=== PATIENT | female | born 1930 | race Caucasian/White ===

== ENCOUNTER 2017-02-08 02:15 | Inpatient (IN) ==
[2017-02-08] MEDS ORDERED: DILAUDID IV ONE (02:34)
[2017-02-08] MEDS ORDERED: ZOFRAN IV ONE (02:36)
--- NOTE | 2017-02-08 03:29 | PROVIDER DOCUMENTATION ---
This chart was entered by Lucero Tanner Scribe, acting as scribe for Abhay Carpio MD. HPI-Musculoskeletal Pain/Inj - GENERAL Chief Complaint: Hip Injury Stated Complaint: hip pain fall Time Seen by Provider: 02/08/17 02:25 Source: patient - HX OF PRESENT ILLNESS-MUSKULOSKELTAL Nature of Presenting Problem: Pt is a 87 year old female who came into the ED with a cc of falling on her right hip at 1:45. Quality of Pain: reports: sharp Severity in ED: mild Onset/Duration: just prior to arrival Timing: still present Modifying Factors: improves with: movement Any recent injury?: Yes Locality of Occurance: Home Similar Symptoms Previously?: No Recently seen or treated by another doctor?: No - FALL INJURY Location of Pain/Injury: reports: pelvis (right hip) Pain Radiation: reports: no radiation Reason for Fall: reports: slipped Loss of Consciousness: no loss of consciousness Injury Associated Symptoms: reports: denies symptoms - HIP/PELVIS PAIN/INJURY Hip Pain Location: reports: hip (R) Pain Radiation: reports: no radiation Context / Method of Injury: reports: injury Review of Systems - Adult - REVIEW OF SYSTEMS - ADULT Constitutional: denies: chills, fever Eyes: reports: no symptoms reported Ears, Nose, Mouth & Throat: reports: no symptoms reported Cardiovascular: denies: chest pain, irregular heart rate, syncope Respiratory: denies: cough, shortness of breath Gastrointestinal: reports: no symptoms reported Genitourinary: reports: no symptoms reported Musculoskeletal: reports: bone pain (right hip). denies: frequent leg cramps, joint swelling Integumentary: reports: no symptoms reported Neurological: reports: no symptoms reported Psychiatric: reports: no symptoms reported Endocrine: reports: no symptoms reported Hematologic/Lymphatic: reports: no symptoms reported Allergic/Immunologic: reports: no symptoms reported All Other Systems: Reviewed and Negative Past History - Adult - PAST MEDICAL HISTORY-ADULT Review of Records: reports: Nursing Assessment Review Major Childhood Illnesses: reports: denies history Cardiovascular: reports: HTN Respiratory: reports: denies history Gastrointestinal: reports: denies history Obstetrical/Gynecological: reports: denies history Genitourinary: reports: denies history Musculoskeletal: reports: denies history Neurological: reports: denies history Endocrine/Immune: reports: denies history Other Conditions: reports: denies history - PRIOR SURGERIES/PROCEDURES Surgical/Procedure History: reports: hysterectomy, other (cataract removal) - PRIOR HOSPITALIZATIONS Prior Hospitalizations: reports: for other non-related - IMMUNIZATION STATUS Childhood Immunizations: See Nurse Assessment Flu Vaccine: See Nurse Assessment - FAMILY HISTORY Family History: reviewed, not pertinent Physical Exam-Injury Related - Physical Exam-Injury Related Initial Vital Signs Reviewed: Yes General Appearance: appears well, alert, mild distress Eyes: PERRL/EOMI, pink conjunctivae Head, Ears, Nose, Mouth & Throat: normocephalic/atraumatic, moist mucous membranes Neck: non-tender, full range of motion Respiratory: chest non-tender, lungs clear Cardiovascular: normal peripheral pulses, regular rate, rhythm Abdominal Exam: normal bowel sounds, non tender, soft Back Exam: normal inspection, no vertebral tenderness Extremity: tenderness (right hip). negative: non-tender, normal gait Integumentary: normal color, warm/dry Neurologic: grossly normal Psych/Mental Status: normal mood/affect, normal thought content, normal thought process, oriented x 3 - Glascow Coma Score Best Eye Response (Renetta): (4) open spontaneously Best Verbal Response (Renetta): (5) oriented Best Motor Response (Renetta): (6) obeys commands [place] Total: 15 Progress - PLAN OF CARE/RESULTS Progress/Plan/Lab Results: Vital Signs - 8 hr 02/08/17 02:20 Temperature 97.7 F Pulse Rate 73 Respiratory Rate 16 Blood Pressure 138/76 O2 Sat by Pulse Oximetry 96 Orders Category Date Time Status Ok Cath Insertion ORDERED Care 02/08/17 02:36 Active XRAY PELVIS W/HIP 2-3VW RT [RAD] Stat Exams 02/08/17 02:26 Taken Hydromorphone [Dilaudid] Med 02/08/17 02:34 Discontinued 0.5 mg IV NOW ONE Ondansetron [Zofran] Med 02/08/17 02:36 Discontinued 4 mg IV NOW ONE EKG [EKG] Stat Ther 02/08/17 02:17 Ordered - EKG 1 Time of EKG reading by physician:: 02:11 EKG Read and Signed by:: Abhay Carpio EKG Interpretation (*Must complete 3 of following elements*): Abnormal Rate: 72 (possible inferior infarct; anterior infarct) Rhythm: sinus rhythm with 1st degree AV blocl - XRAY 1 XRAY Study: Hip (right intertrochanteric fracture) Departure - Departure Date of Disposition Decision: 02/08/17 Time of Disposition Decision: 03:28 DIAGNOSIS: Fracture, intertrochanteric, right femur Qualifiers: Encounter type: initial encounter Fracture type: closed Fracture alignment: nondisplaced Qualified Code(s): S72.144A - Nondisplaced intertrochanteric fracture of right femur, initial encounter for closed fracture Disposition: ADMITTED INPATIENT 09 Certified Medical Emergency: Emergent Condition: Stable Referrals and Follow-Ups: Raheem Ramos MD [Primary Care Provider] - - Critical Care Note This patient required my direct & personal management of CC.: Yes This chart was documented by the indicated scribe, (Lucero Tanner Scribe) and accurately reflects the services I performed and decisions made by me, Abhay Carpio MD, as attested by the provider's signature.
[2017-02-08 05:53] LABS: INR 1.22
[2017-02-08] MEDS ORDERED: TYLENOL PO PRN (06:12)
[2017-02-08] MEDS ORDERED: OXY IR PO PRN ×2 (06:12→07:51)
[2017-02-08] MEDS ORDERED: NS 1,000 ML IV SCH (06:12)
[2017-02-08] MEDS ORDERED: ZOFRAN IV PRN ×2 (06:12→15:21)
--- NOTE | 2017-02-08 06:16 | HISTORY AND PHYSICAL ---
PRIMARY CARE PHYSICIAN: Dr. Ramos. HISTORY OF PRESENT ILLNESS: Ms. Radha Hoang is an 87-year-old woman with past medical history of hypertension, hyperlipidemia, hypothyroidism who fell on the way back from her kitchen to her bedroom. She said that she felt a little dizzy prior to falling but no chest pain or any other cardiorespiratory complaints. When she did fall, she did not lose consciousness nor did she hit her head. Called for help. Her heard her and then saw her on the floor. Could barely get her up and then called EMS to bring her in. The patient denies any nausea, vomiting, diarrhea or blood loss prior to the fall. Denies any GI or complaints. No neurological complaints. REVIEW OF SYSTEMS: Twelve system review positive for only findings noted above which include intense right hip pain nonradiating localized to the right hip area. No extremity swelling or discoloration distally. ALLERGIC: Zoloft and morphine. HOME MEDICATIONS: 1. Ambien 10 mg daily. 2. Ultracet 100 mg daily. 3. Zanaflex 4 mg daily. 4. Timolol 1 drop b.i.d. 5. Lyrica 75 mg daily. 6. Benicar 20 mg daily. 7. Bystolic 5 mg daily. 8. Remeron 15 mg daily. 9. Synthroid 25 mcg daily. 10. Fenofibrate 145 mg daily. FAMILY HISTORY: Only notable for coronary artery disease. No cancer. SOCIAL HISTORY: Patient dips snuff. Does not smoke, drink, or use drugs. She is and lives with her . SURGICAL HISTORY: Only notable for hysterectomy. DIAGNOSTIC DATA: X-ray confirms a right intertrochanteric fracture. EKG shows normal sinus rhythm with first-degree AV block, poor R-wave progression and Q-waves in the inferior leads. LAB WORK: Pending at this time. PHYSICAL EXAMINATION: VITAL SIGNS: Blood pressure 130/76, heart rate 73, respirations 16, temperature is 97.7 degrees. Room air O2 saturation 96. GENERAL: Frail, thin, elderly woman who is not in acute distress. She is alert and oriented x3 with normal mood and affect. Slightly anxious. HEENT: Head is normocephalic, atraumatic. Eyes: PERRLA. EOMI. Extraocular movements are intact. Anicteric and not pale. ENT and oropharynx exam is grossly normal. No cyanosis. NECK: Supple. No JVD or carotid bruit. No thyromegaly. CHEST: Clear to auscultation. Good air entry both lung [place]. CARDIOVASCULAR: First and sounds heard. No gallops. 2/6 ejection systolic murmur heard in the pulmonic area. Rhythm is regular. ABDOMEN: Full, soft. No focal areas of tenderness. No masses appreciated. Bowel sounds are normal. RECTAL: Deferred at this time. EXTREMITIES: Right lower extremity is externally rotated and slightly shortened on the right than the left thyroid. Trace edema noted to both lower extremities. Pulses distally in all extremities symmetrical with moderate volume. No clubbing or peripheral cyanosis. NEUROLOGICAL: No focal deficits. SKIN: Intact. No breakdown, lesions, or erythema. MUSCULOSKELETAL: See above. All others grossly unremarkable. ASSESSMENT: 1. Right hip fracture. 2. Hypertension. 3. 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 4. Hyperlipidemia. 5. Hypothyroidism. PLAN: Patient will await blood work which I just ordered and had not been ordered prior to me getting down to the ER to evaluate her. Treat her symptomatically in anticipation for surgery today. Dr. Cueva was notified by Dr. Carpio, the ER physician, and he or his colleagues will be by to see her later today. Continue to manage patient's pain while at the same time ensuring that she does not become constipated. DVT prophylaxis with SCDs in the interim phase preoperatively. Discontinue the Zanaflex because of its potential to worsen bradycardia and cause AV block. Also may need to cut the dose of Bystolic if patient's blood pressure or heart does not support the usage of this medication. cc: MD Raheem Phipps MD
[2017-02-08] MEDS: DILAUDID IV PRN ×2 (06:59→11:25)
--- NOTE | 2017-02-08 07:28 | EKG Report ---
Test Performed on : 02/08/2017 02:11:17 AM Test Reason : NO ORDER Blood Pressure : / mmHG Vent. Rate : 072 BPM Atrial Rate : 072 BPM P-R Int : 216 ms QRS Dur : 074 ms QT Int : 382 ms P-R-T Axes : 073 000 004 degrees QTc Int : 418 ms Sinus rhythm. with 1st degree AV block. Possible Inferior infarct , age undetermined Anterior infarct , age undetermined Abnormal ECG When compared with ECG of 02-JUN-2010 00:31, Anterior infarct is now present Borderline criteria for Inferior infarct are now present Inverted T waves have replaced nonspecific T wave abnormality in Inferior leads Unconfirmed Result
--- NOTE | 2017-02-08 07:28 | Diag Imaging Result Doc PS360 ---
EXAM: XRAY PELVIS W/HIP 2-3VW RT INDICATION: right hip xray TECHNIQUE: 3 views COMPARISON: None. FINDINGS: There is an intertrochanteric fracture involving the right hip with mild comminution and a mildly displaced fragment. No other fractures or dislocations are appreciated. The surrounding soft tissues are grossly unremarkable. IMPRESSION: Intertrochanteric fracture of the right hip as described. Electronically signed by Maksim Sage 02/08/2017 7:26 AM
[2017-02-08] MEDS ORDERED: MORPHINE IV PRN ×3 (07:51→15:21)
[2017-02-08] MEDS ORDERED: HALDOL IV PRN (07:51)
[2017-02-08] MEDS ORDERED: TYLENOL PO SCH (08:00)
[2017-02-08] MEDS: BYSTOLIC PO SCH (08:23)
[2017-02-08] MEDS ORDERED: BENICAR PO SCH (09:00)
--- NOTE | 2017-02-08 09:04 | Diag Imaging Result Doc PS360 ---
EXAM: CHEST-PORTABLE HISTORY: surgery TECHNIQUE: AP portable upright at 0854 COMMENT: Compared to the previous examination 11/20/2012 there has been no significant change. There is apparent COPD and there may be some bronchiectasis in the right upper lobe. IMPRESSION: COPD. Right upper lobe bronchiectasis. Electronically signed by Hari Ramos 02/08/2017 9:02 AM
[2017-02-08] MEDS: LOPRESSOR PO SCH ×2 (09:18→21:03)
[2017-02-08 12:39] LABS: HEMATOCRIT 32.9 % (37.0-47.0); HEMOGLOBIN 11.1 g/dL (12.0-16.0); MCH 29.4 PG (27-31); MCHC 33.7 g/dL (33-37); MPV 10.5 FL (7.4-10.4); RBC 3.78 XMIL (4.2-5.4)
[2017-02-08 12:48] LABS: CALCIUM 8.6 mg/dL (8.8-10.2); POTASSIUM 3.5 mmol/L (3.5-5.1)
[2017-02-08] MEDS ORDERED: KEFZOL 1 GM/D5W 1 GM/50 ML IVPB ONE (13:21)
[2017-02-08] MEDS ORDERED: XYLOCAINE-MPF 2% ONE (13:36)
[2017-02-08] MEDS ORDERED: DIPRIVAN 1% ONE (13:36)
--- NOTE | 2017-02-08 13:48 | CONSULTATION ---
DATE OF CONSULTATION: 02/08/2017 HISTORY OF PRESENT ILLNESS: Ms Hoang 87-year-old female who unfortunately fell yesterday evening injuring this right hip. She was taken to emergency department and diagnosed with hip fracture. She was admitted per the hospitalist service and made NPO. Most of her pain is on this right side. It starts at the hip and radiates down to the knee. She says she is not really able to move it well, when she moves it hurts a lot more. When she keeps it still it does tend to feel better. She denies any pain left lower extremity or bilateral upper extremities. She denies any loss of consciousness or hitting her head when she fell. PAST MEDICAL HISTORY: Hypertension, hypothyroidism. PAST SURGICAL HISTORY: Hysterectomy. SOCIAL HISTORY: She denies smoking or alcohol use. FAMILY HISTORY: Positive for heart disease. ALLERGIES: Zoloft and morphine. HOME MEDICATIONS: Per the medical record. REVIEW OF SYSTEMS: Positive for this right hip pain. All other systems are essentially negative. PHYSICAL EXAMINATION: General: Well-developed, well-nourished female in no acute distress. Head/neck: Normocephalic, atraumatic. Lungs: Respirations nonlabored. Cardiovascular: Regular rate. Abdomen: Nondistended. Extremities: Right lower extremity exam shows tenderness to palpation to the right hip. That whole right lower extremity is externally rotated. She has a good 2+ DP pulse though. So she is able to dorsiflex and plantar flex the toes and ankle very well and she has good sensation light touch to the toes. No tenderness to palpation the left lower extremity or bilateral upper extremities. RADIOGRAPHS: Three-view of the right hip shows an intertrochanteric fracture that does involve the lesser trochanter and it is displaced some. ASSESSMENT: Right intertrochanteric hip fracture. PLAN: I went over with Ms. Hoang and her about her hip fracture. We would recommend surgical intervention, which would be a trochanteric femoral nail to stabilized everything. I went over with them the procedure, risks, benefits, potential complications. Risks include, but are not limited to, infection, wound healing problems, damage to nerves, arteries, veins, numbness, malunion, nonunion, hardware related issues, continued pain, DVT and anesthesia related risks. After discussing this with the patient, she expressed understanding, wished to proceed. She will be NPO today. Her troponins came back negative and her INR came back about normal so plan on getting this done today. cc: Aldair Cueva MD
[2017-02-08] MEDS ORDERED: EPHEDRINE ONE (14:07)
[2017-02-08] MEDS ORDERED: MILK OF MAGNESIA PO PRN (15:21)
[2017-02-08] MEDS: MORPHINE ONE ×4 (15:36→15:55)
--- NOTE | 2017-02-08 18:13 | PROGRESS NOTE ---
DATE: 02/08/2017 SUBJECTIVE: This patient is lying comfortably in bed. She is not complaining of pain or shortness of breath, though Dr. Cueva has been consulted and she is getting surgery today. OBJECTIVE: Vital Signs: Temperature 98.8, pulse 79, respiratory rate 19, blood pressure 107/65, O2 saturation 99% on room air. HEENT: Head normocephalic. No trauma. PERRLA. Neck: Supple. No JVD. No masses. Central trachea. Chest: Clear to auscultation. No wheezing. No rales. Abdomen: Soft, nontender, nondistended. No hepatosplenomegaly. Extremities: Right lower extremity is short compared with the left one with external rotation, pain at the level of the right hip. Neurological: This patient is hard of hearing, alert and oriented x3. She is following commands. ASSESSMENT AND PLAN: 1. Right intertrochanteric hip fracture, Orthopedic Surgery on board. Orthopedic Surgery is on board. Hopefully she is getting surgery today. We will continue following the recommendations of Orthopedic Surgery Department. 2. Hypertension, stable. We will continue to monitor. 3. First-degree AV block, probably secondary to medications. We will monitor. 4. Hyperlipidemia. Stable. 5. Hypothyroidism. Stable. 6. Deep vein thrombosis prophylaxis. This patient is going for surgery, so no anticoagulation for now. cc: Rafael Palmer MD
--- NOTE | 2017-02-08 18:58 | OPERATIVE NOTE ---
PROCEDURE DATE: 02/08/2017 PREOPERATIVE DIAGNOSIS: Right intertrochanteric hip fracture. POSTOPERATIVE DIAGNOSIS: Right intertrochanteric hip fracture. PROCEDURE: Right trochanteric femoral nailing. SURGEON: Dr. Aldair Cueva. DIVING JUDGE: Cordell Jose RN. ANESTHESIA: General with LMA. ESTIMATED BLOOD LOSS: 100 mL. IMPLANTS: Synthes trochanteric femoral nail 11 x 360. DISPOSITION: To PACU, hemodynamically stable. INDICATION FOR PROCEDURE: Ms. Hoang is an 87-year-old female who presented to the emergency department yesterday after a fall. Diagnosed her with a right intertrochanteric fracture. She was made NPO. Cleared per the Medicine Service. I talked with her and her about operative intervention and they expressed understanding and wished to proceed. DESCRIPTION OF PROCEDURE: Ms. Hoang was identified in the preoperative holding area. The right hip was marked as correct surgical site. She was then wheeled to the operating room, placed supine on the operating table. All bony prominences well padded. She was induced under general anesthesia. LMA was placed. Right lower extremity was then prepped with gluconate scrub and ChloraPrep and draped in normal sterile fashion. Surgical pause was performed. We identified the correct patient, correct side, and the correct procedure. Preop antibiotics were given. Fluoroscopic imaging was taken which showed we had a good reduction in AP and lateral views. I then made a small incision just superior to the greater trochanter. Dissection was carried down to the deep layer. Got my guidewire in place. I drilled over it and then got my long guidewire down. I made sure that it was at the level of the superior pole of the patella. We measured that to be right at 360. So elected to use a 360 feliciano. I then sequentially reamed, starting with a low reamer and up to a size 12. We checked and had really good bone chatter. I then put my nail down. Got it in place and then made a small incision on the lateral aspect of the thigh and drilled my wire for the blade and that all actually looked really good. So, then I was able to get my blade up. The calcar area kicked out just a little bit. I was able to get some of that back using the compression aspect of the TFN system but still stayed out, kicked out just a little bit but I do not think we were in varus and I do not think we were in too much valgus either so we kept it. The blade was about center center in the head. I then locked it in place. Then came down distally and through 1 interlocking screw under perfect [place] technique, in the dynamic hole. Final images were taken which showed good overall reduction, a good position of our hardware. All the incisions were then irrigated copiously with normal saline. 0 Vicryl was used to close the deep layer, 2-0 Vicryl for the subcutaneous, and lei on the skin. Adaptic, 4x4s, and Island dressings were placed. Patient was then awakened from general anesthesia, moved to her own bed and taken to the PACU in stable condition. Postoperatively, patient will be weight bear as tolerated right lower extremity. She will start working with physical therapy tomorrow and we will be getting her discharged to rehab early this next week. cc: Aldair Cueva MD
[2017-02-08] MEDS: LYRICA PO SCH (19:03)
[2017-02-08] MEDS: MIRALAX PO SCH ×2 (19:03→21:01)
[2017-02-08] MEDS: PERICOLACE PO SCH (19:03)
[2017-02-08] MEDS: NS 1,000 ML IV SCH ×2 (19:04→21:00)
[2017-02-08] MEDS: LR 1,000 ML IV SCH ×2 (19:04→22:27)
[2017-02-08] MEDS: HALDOL IV PRN (19:13)
[2017-02-08] MEDS: TYLENOL PO SCH ×2 (19:16→21:02)
[2017-02-08] MEDS: PERIDEX MT SCH (21:01)
[2017-02-08] MEDS: KEFZOL 1 GM/D5W 1 GM/50 ML IVPB IV SCH (21:01)
[2017-02-08] MEDS: TIMOPTIC 0.5% OPH SOLUTION BOTH EYES SCH (21:02)
[2017-02-08] MEDS: COLACE PO SCH (21:03)
[2017-02-08] MEDS: OXY IR PO PRN (21:18)
[2017-02-09] MEDS: OXY IR PO PRN ×3 (00:13→09:00)
[2017-02-09] MEDS: TYLENOL PO SCH ×3 (02:18→15:38)
[2017-02-09] MEDS ORDERED: NS 500 ML IV ONE (04:52)
[2017-02-09] MEDS: KEFZOL 1 GM/D5W 1 GM/50 ML IVPB IV SCH ×2 (05:02→15:37)
[2017-02-09] MEDS: NS 1,000 ML IV SCH ×4 (05:03→20:35)
[2017-02-09] MEDS: LOVENOX SUBQ SCH (05:03)
[2017-02-09 05:29] LABS: MANUAL DIFF NEEDED? NO
[2017-02-09 05:41] LABS: BASO% 0.3 % (0.0-0.8); EOS# 0.04 X1000 (0.0-0.7); EOS% 0.5 % (0.0-10.0); HEMATOCRIT 26.1 % (37.0-47.0); HEMOGLOBIN 8.4 g/dL (12.0-16.0); IMM GRAN# 0.02 X1000 (0.0-0.04); IMM GRAN% 0.2 % (0.0-0.5); LYMPH# 2.76 X1000 (1.2-3.4); LYMPH% 31.4 % (20.5-51.1); MCH 28.5 PG (27-31); MCHC 32.2 g/dL (33-37); MCV 88.5 FL (81-99); MONO# 0.91 X1000 (0.11-0.59); MONO% 10.4 % (1.7-9.3); MPV 11.2 FL (7.4-10.4); NEUT% 57.2 % (42.2-75.2); PLT 166 X1000 (130-400); RBC 2.95 XMIL (4.2-5.4)
[2017-02-09 05:57] LABS: CALCIUM 8.3 mg/dL (8.8-10.2)
[2017-02-09 06:33] LABS: URINE SOURCE CATH
[2017-02-09 06:37] LABS: BILIRUBIN URINE NEGATIVE (NEGATIVE); BLOOD URINE NEGATIVE (NEGATIVE); COLOR YELLOW; GLUCOSE URINE NEGATIVE (NEGATIVE); LEUKOCYTES URINE MODERATE (NEGATIVE); NITRITE URINE NEGATIVE (NEGATIVE); PH URINE 5.5; PROTEIN URINE 50 mg/dL (NEGATIVE); SP GRAVITY URINE 1.017; TURBIDITY URINE CLEAR (CLEAR); URINE MICRO REVIEW NEEDED? YES; UROBILINOGEN URINE NORMAL (NORMAL)
[2017-02-09 06:42] LABS: UR EPITHELIAL CELLS <10 /HPF (<10); URINE BACTERIA NEGATIVE /HPF; URINE RBC <10 /HPF (<10)
[2017-02-09 06:48] LABS: URINE CASTS GRANULAR PRESENT
[2017-02-09] MEDS: LOPRESSOR PO SCH ×3 (09:00→20:29)
[2017-02-09] MEDS: BYSTOLIC PO SCH ×2 (09:00→09:08)
[2017-02-09] MEDS: LYRICA PO SCH (09:00)
[2017-02-09] MEDS: PERICOLACE PO SCH (09:00)
[2017-02-09] MEDS: FERROUS SULFATE PO SCH (09:01)
[2017-02-09] MEDS: PERIDEX MT SCH ×3 (09:01→22:13)
[2017-02-09] MEDS: MIRALAX PO SCH ×2 (09:01→20:29)
--- NOTE | 2017-02-09 09:07 | PROGRESS NOTE ---
DATE: 02/09/2017 SUBJECTIVE: Ms. Hoang is postop day 1 after a right trochanteric femoral nail for intertrochanteric fracture. She is a little bit confused this morning but feeling okay. OBJECTIVE: Right Lower Extremity Examination: Dressing is clean, dry, and intact. She is able to dorsiflex and plantarflex the ankle and toes very well. She has good sensation to light touch to the toes and 1+ DP pulse. ASSESSMENT: Status post right trochanteric femoral nailing for hip fracture. PLAN: Ms. Hoang will work with physical therapy over the weekend. She can be weightbearing as tolerated to the right lower extremity. We will work on social scientist getting everything set up for rehab, most likely on Saturday. The hospitalist team is working on her medical conditions. She has had a little bit of decreased urine output. 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 cc: Aldair Cueva MD
--- NOTE | 2017-02-09 10:49 | Diag Imaging Result Doc PS360 ---
EXAM: US RENAL 2 (RETROPER) COMPLETE HISTORY: decreased renal function TECHNIQUE: COMPARISON: None. FINDINGS: The right kidney measures 9.0 x 3.7 x 3.5 cm. Normal cortical thickness. Mild increased renal echotexture. Incidental note is made of a 1.9 cm stone within the gallbladder. Gallbladder wall is not thickened. The left kidney measures 9.3 x 3.2 x 4.3 cm. No renal stone or hydronephrosis. No renal mass. Normal echotexture. A Ko catheter has the urinary bladder decompressed. IMPRESSION: 1.Borderline mild increased renal echotexture which can be seen with medical renal disease 2.Cholelithiasis Electronically signed by Tano Jonas 02/09/2017 10:46 AM
--- NOTE | 2017-02-09 14:11 | CONSULTATION ---
DATE OF CONSULTATION: 02/09/2017 REASON FOR ADMISSION: Right hip fracture, status post right trochanteric femoral nailing. REASON FOR CONSULTATION: Acute kidney injury. CONSULTING PHYSICIAN: Dr. Winters. HISTORY OF PRESENT ILLNESS: This is an 87-year-old female, with a past medical history of hypertension, hyperlipidemia, and hypothyroidism, who fell in the kitchen at home. She required EMS to bring her to the hospital. There, she was found to have a right hip fracture. She underwent definitive surgery to that area yesterday. Her renal function was normal on admission, with a creatinine of 0.8. This morning, her creatinine has risen to 1.5. We have been asked to see her for acute kidney injury. The patient has had some IV fluids restarted. She continues with a Ko, and her Benicar has been held. This morning, she has been able to eat somewhat. She denies any nausea or vomiting or other symptoms, aside from pain to the surgical site. PAST MEDICAL HISTORY: Hypertension, hyperlipidemia, hypothyroidism, insomnia. PAST SURGICAL HISTORY: Hysterectomy, yesterday's hip intertrochanteric nailing. ALLERGIES: Latex, morphine, sertraline. HOME MEDICATIONS: 1. Ambien. 2. Ultracet. 3. Zanaflex. 4. Timolol. 5. Lyrica. 6. Benicar. 7. Bystolic. 8. Remeron. 9. Synthroid. 10. Fenofibrate. FAMILY HISTORY: Coronary artery disease. SOCIAL HISTORY: No ETOH or illicit drug use. She uses snuff. She is , and has attentive family. REVIEW OF SYSTEMS: Negative, aside from pertinent positives noted above in the HPI. PHYSICAL EXAMINATION: Vital Signs: Temperature 98.8 degrees, pulse 94, respiratory rate 16, blood pressure 104/43, intake 3.2 L, output 900 mL. General: This is an elderly female, sitting up in bed. She is awake and alert. She is oriented x3. HEENT: Normocephalic, atraumatic. JOSEFINA, conjunctivae pink. Her oral mucosa is somewhat dry. She is hard of hearing. Neck: Supple. No JVD. Cardiovascular: Regular rate and rhythm. She has a systolic murmur noted. No gallop. Pulmonary: She has equal excursion. She is clear bilaterally. Abdomen: Soft, positive bowel sounds. Genitourinary: Not inspected. She has a Ko catheter. There is yellow urine noted. Extremities: There is no edema. She is moving her upper extremities. The right lower extremity with external rotation. Integumentary: Skin is warm and dry otherwise. Neurologic: Hard of hearing, but grossly nonfocal otherwise. LABORATORY DATA: WBC of 8.7, hemoglobin 8.4, hematocrit 26.1, platelet count of 166,000. Sodium 141, potassium 4.0, CO2 23, BUN 26, creatinine 1.5 (0.8), calcium 8.3. Urinalysis with 1+ WBCs, trace protein, no blood. ASSESSMENT AND PLAN: 1. Acute kidney injury. We will order a renal ultrasound and urine studies this morning. Patient has already had IV fluids restarted, and Benicar is held. Medication review reveals no other changes at this time. She has no indication for intervention. Recheck labs in the morning. 2. Right intertrochanteric hip fracture. Surgery following. 3. Electrolytes, acid-base balance. These are stable. 4. Anemia, secondary to surgery. 5. Hypertension, controlled. 6. Fluid volume. She is not overloaded. Dictated by SEBASTIÁN Turcios for Charles Reinoso MD cc: Charles Reinoso MD
--- NOTE | 2017-02-09 14:28 | PROGRESS NOTE ---
DATE: 02/09/2017 SUBJECTIVE: When I evaluated this patient, she was working with Physical Therapy. She has generalized weakness and pain, mostly at the level of the right hip. Family members at the bedside. All their questions were answered. Today, she looks a little bit confused. She is alert. She is oriented to place and person. She recognized her . OBJECTIVE: Vital Signs: Temperature 98.1 degrees, pulse 78, respiratory rate 16, blood pressure 120/51, oxygen saturation 92% on room air. HEENT: Head normocephalic. No trauma. PERRLA. Neck: Supple. No JVD. No masses. Central trachea. Chest: Clear to auscultation. No wheezing. No rales. Abdomen: Soft, nontender, nondistended. No hepatosplenomegaly. Extremity: Right hip covered with a clean dressing. No sign of bleed or infection. Painful to palpation and mobilization. Neurologic: The patient is hard of hearing. She is alert and oriented x2. She is not oriented to time, but apparently she has been confused on and off. LABORATORY: WBC 8.7, hemoglobin 8.4, hematocrit 26.1, platelets 166,000. Sodium 141, potassium 4, chloride 101, bicarbonate 23, BUN 26, creatinine 1.5, glucose 87, calcium 8.3. ASSESSMENT AND PLAN: 1. Right intertrochanteric hip fracture. Orthopedic Surgery is on board. She had surgery yesterday and they placed a right trochanteric femoral nail in. Will continue with physical therapy. She should be discharged to a rehab center, hopefully between Saturday and Saturday, if everything is okay. 2. Hypertension. Stable. Continue with the same management. 3. Acute kidney injury, likely secondary to acute tubular necrosis. Nephrology Department is on board. I will continue with IV fluids and follow their recommendations. 4. First-degree atrioventricular block, probably secondary to medications. Will monitor especially the beta can. 5. Hyperlipidemia. Stable. 6. Hypothyroidism. Stable. 7. Deep vein thrombosis prophylaxis. This patient has been has been placed on Lovenox. We will continue with the same management. cc: Rafael Palmer MD
[2017-02-09 18:27] LABS: UR CREAT RANDOM 191.1 mg/dL (11-20); UR PROT RANDOM 58.1 mg/dL
[2017-02-09] MEDS: COLACE PO SCH (20:29)
[2017-02-09] MEDS: TIMOPTIC 0.5% OPH SOLUTION BOTH EYES SCH (20:30)
[2017-02-10] MEDS: LOVENOX SUBQ SCH (05:34)
[2017-02-10] MEDS: NS 1,000 ML IV SCH ×2 (05:34→17:18)
[2017-02-10 06:11] LABS: ALBUMIN 2.3 g/dL (3.5-5.0); CALCIUM 7.6 mg/dL (8.8-10.2); POTASSIUM 3.7 mmol/L (3.5-5.1)
[2017-02-10 06:24] LABS: HEMATOCRIT 20.8 % (37.0-47.0); HEMOGLOBIN 6.9 g/dL (12.0-16.0)
[2017-02-10] MEDS: TYLENOL PO SCH ×4 (06:40→20:29)
[2017-02-10] MEDS: PERIDEX MT SCH ×2 (09:37→20:29)
[2017-02-10] MEDS: MIRALAX PO SCH ×2 (09:39→20:28)
[2017-02-10] MEDS: PERICOLACE PO SCH (09:39)
[2017-02-10] MEDS: FERROUS SULFATE PO SCH (09:39)
[2017-02-10] MEDS: LYRICA PO SCH (09:40)
--- NOTE | 2017-02-10 11:26 | PROGRESS NOTE ---
DATE: 02/10/2017 SUBJECTIVE: Ms. Hoang presented on 02/08/2017. She is a patient Dr. Ramos. She is an 87- year-old with a past medical history of hypertension, hyperlipidemia, hypothyroidism. She fell on her way back from her kitchen to her bedroom. She felt a little dizzy prior to falling but denied any chest pain or cardiorespiratory complaints. They could barely get her up and they called EMS. They found a right hip fracture and a 1st degree AV block, probably secondary to her beta blockers. History of hypertension, history of hyperlipidemia, and hypothyroidism. Renal ultrasound was done on 02/09, borderline mild increased renal echotexture which is seen with medical renal disease. She had some cholelithiasis. Consultation with Dr. Reinoso for acute kidney disease. Ultrasound is consistent with medical long-term renal insufficiency. She had a right intertrochanteric fracture. Surgery is following. Follow electrolytes and blood counts. Dr. Cueva followed her; saw her on 02/08. Status post right trochanteric femoral nailing of her hip fracture and that was done on 02/08/2017. REVIEW OF ORDERS: I do not see anything to change at this point. ASSESSMENT: 1. She had acute tubular necrosis. 2. Acute kidney injury. 3. First degree AV block. PLAN: She has remained stable. She is still on a beta can. Follow her labs. Hematocrit is stable at 26. Hemoglobin 8. Electrolytes, creatinine is 1.6. She presented with a creatinine of 0.9. Continue to follow. Continue present fluids. cc: Miguel Arevalo MD
--- NOTE | 2017-02-10 11:44 | PROGRESS NOTE ---
DATE: 02/10/2017 SUBJECTIVE: The patient continues to have pain to her surgical site. She has been dosed with Tylenol and Lyrica about 10 minutes prior. OBJECTIVE: Vital Signs: Temperature 98.4 degrees, pulse 86, respiratory rate 16, blood pressure 102/58. Intake 3.7 L. Output. 257 mL via Ko. She is currently voiding. General: This is an elderly female, resting in bed. She is awake and alert. She is hard of hearing. Perhaps some mild confusion. HEENT: Normocephalic, atraumatic. Conjunctivae pink. Oral mucosa is dry. Neck: Supple. No jugular venous distention. Cardiovascular: Regular rate and rhythm with a systolic murmur. Pulmonary: Equal excursion. She is clear bilaterally. Abdomen: Soft. Positive bowel sounds. Genitourinary: Not inspected. She is voiding. Extremities: No clubbing or cyanosis. She is moving her upper extremities. The left lower extremity is in an adduction pillow. Integumentary: Skin is warm and dry otherwise. LAB DATA: WBC of 6.9, hemoglobin 20.8, sodium 136, potassium 3.7, CO2 25, BUN 34, creatinine 1.6. Albumin 2.3, calcium 7.6. She had a FENa of 0.08. ASSESSMENT AND PLAN: 1. Acute kidney injury. She had extremely low FENa score. She had IV fluids started yesterday. Her renal function has not worsened overnight. Her urine output, although adequate, has decreased since the discontinuation of Ko catheter. We will continue measuring void today. Will checked a bladder scan if urine output remains low. 2. Electrolytes, acid-base balance, acceptable. 3. Anemia secondary to surgery, followed by primary. 4. Hypertension, controlled. Dictated by SEBASTIÁN Turcios for Charles Reinoso MD cc: Charles Reinoso MD [facility]
[2017-02-10] MEDS: LOPRESSOR PO SCH ×2 (12:33→21:58)
[2017-02-10] MEDS: BYSTOLIC PO SCH (12:33)
[2017-02-10] MEDS ORDERED: NS 500 ML ONE (14:24)
[2017-02-10] MEDS: OXY IR PO PRN (14:28)
[2017-02-10] MEDS: TIMOPTIC 0.5% OPH SOLUTION BOTH EYES SCH (20:29)
[2017-02-10] MEDS: COLACE PO SCH (20:29)
[2017-02-11] MEDS: NS 1,000 ML IV SCH ×4 (01:31→21:14)
[2017-02-11] MEDS: OXY IR PO PRN (01:32)
[2017-02-11] MEDS: HALDOL IV PRN (03:30)
[2017-02-11 05:22] LABS: HEMATOCRIT 33.4 % (37.0-47.0); HEMOGLOBIN 11.5 g/dL (12.0-16.0)
[2017-02-11] MEDS: TYLENOL PO SCH ×3 (05:28→15:20)
[2017-02-11] MEDS: LOVENOX SUBQ SCH (05:29)
[2017-02-11 05:32] LABS: ALBUMIN 2.7 g/dL (3.5-5.0); CALCIUM 7.8 mg/dL (8.8-10.2); POTASSIUM 3.5 mmol/L (3.5-5.1)
--- NOTE | 2017-02-11 07:37 | PROGRESS NOTE ---
DATE: 02/11/2017 SUBJECTIVE: Ms. Hoang is lying in bed this morning. Pain seems controlled. Unfortunately, she did not really sleep much at all last night. Medical team has been working on her because of acute kidney injury and her creatinine has been rising. OBJECTIVE: Right Lower Extremity Examination: Dressing is clean, dry, and intact. She is able to dorsiflex and plantarflex the foot and ankle very well. She has good sensation to light touch to the toes. ASSESSMENT: Status post right trochanteric femoral nailing for hip fracture. PLAN: Ms. Hoang will be followed closely by her medical team for the kidney injury. From an orthopedic standpoint, I am okay with her being weightbearing as tolerated to the right lower extremity. She can get up to a bedside chair and get her out of bed working on walking with physical therapy. We will continue to follow from an orthopedic standpoint. cc: Aldair Cueva MD
[2017-02-11] MEDS: PERIDEX MT SCH ×2 (09:03→21:13)
[2017-02-11] MEDS: MIRALAX PO SCH ×2 (09:04→21:19)
[2017-02-11] MEDS: PERICOLACE PO SCH (09:04)
[2017-02-11] MEDS: FERROUS SULFATE PO SCH (09:05)
[2017-02-11] MEDS: BYSTOLIC PO SCH (09:05)
[2017-02-11] MEDS: LOPRESSOR PO SCH ×2 (09:05→21:18)
[2017-02-11] MEDS: LYRICA PO SCH (09:05)
--- NOTE | 2017-02-11 11:25 | PROGRESS NOTE ---
DATE: 02/11/2017 SUBJECTIVE: Patient resting in bed. She is awake and alert this morning. OBJECTIVE: Vital Signs: Temperature 98 degrees, pulse 93, respiratory rate 20 , blood pressure 148/75. Intake 3.7 L. Output 100 mL plus incontinent voids not measured. General: Elderly female sitting up in bed. Awake and alert. HEENT: Normocephalic, atraumatic. Conjunctivae pink. Oral mucosa moist. Neck: Supple. No JVD. Cardiovascular: Regular rate and rhythm with a systolic murmur. Pulmonary: Equal excursion. Clear bilaterally. Abdomen: Soft. Positive bowel sounds. : She is voiding. She is incontinent. Extremities: No edema. Left lower extremity remains in an abduction pillow. Integumentary: Skin is warm and dry. Lab Data: Hemoglobin 11.5. Sodium 141, potassium 3.5, CO2 24, creatinine 1. ASSESSMENT AND PLAN: Acute kidney injury, resolved. She had a low FENa score. She had fluid resuscitation appropriately. She has had an appropriate response. We will sign off at this time. Please to not hesitate to call us if we can be of further assistance. Seen, data reviewed, discussed with Nida Dudley on 02/11/17. I agree with the above assessment and plan of care. rg Dictated by SEBASTIÁN Turcios for Charles Reinoso MD cc: Charles Reinoso MD [facility]
--- NOTE | 2017-02-11 16:21 | PROGRESS NOTE ---
DATE: 02/11/2017 SUBJECTIVE: She had a rough night. Especially, she is confused and after she got her OxyContin she got very agitated, confused and pulled out her IV. She has had several bowel movements. They want us to back down on some of her medicines for constipation, but they are very concerned about confusion. They want us to stop the oxycodone. OBJECTIVE: Vital signs: Temperature 98 degrees, pulse 90, respirations 20, blood pressure 148/75. Eyes: Pupils are equal, round. Lungs: Are clear in all lung langston. Cardiovascular: Regular rhythm and rate without murmur or S3. Abdomen: Soft. Skin: Warm and dry. : Urine output was good. LABORATORY: Hemoglobin 11.5, hematocrit 33. I gave her 2 units of blood as her hemoglobin was 6.9 yesterday, so marked improvement. ASSESSMENT AND PLAN: 1. Acute kidney injury. Acute tubular necrosis has resolved. Her FENa score was low. She had fluid resuscitation and had marked improvement of renal function. 2. Hip fracture with repair. She has not been able to really start physical therapy because of some confusion and metabolic encephalopathy, hospital psychosis, so we gave her a couple units of blood. 3. Macrocytic anemia. Acute blood loss anemia. Gave her some blood which is corrected. 4. Delirium and encephalopathy in the face of I think some underlying mild dementia. We will try to eliminate any medications that she does not have to have at this point. She can have her Tylenol. We will stop the Colace. We will stop her oxycodone and was obviously stop her Dilaudid as well. Although she has not had this in a while. She is on her Lyrica which is 75 mg a day. We will continue that. cc: Miguel Arevalo MD
[2017-02-11] MEDS ORDERED: TYLENOL PR PRN (21:39)
[2017-02-11] MEDS: TIMOPTIC 0.5% OPH SOLUTION BOTH EYES SCH (22:10)
[2017-02-11] MEDS: TYLENOL PO PRN (22:11)
[2017-02-12] MEDS: TYLENOL PO PRN ×3 (05:38→21:09)
[2017-02-12] MEDS: LOVENOX SUBQ SCH (05:38)
[2017-02-12 06:01] LABS: HEMATOCRIT 31.8 % (37.0-47.0); HEMOGLOBIN 10.8 g/dL (12.0-16.0)
[2017-02-12 06:26] LABS: AGAP 12; ALBUMIN 2.4 g/dL (3.5-5.0); BUN 21 mg/dL (8-22); CALCIUM 7.7 mg/dL (8.8-10.2); CHLORIDE 107 mmol/L (98-107); COSMO 281; POTASSIUM 3.3 mmol/L (3.5-5.1); SODIUM 140 mmol/L (136-145); TCO2 21 mmol/L (25-35)
[2017-02-12] MEDS: NS 1,000 ML IV SCH ×2 (06:52→15:58)
[2017-02-12] MEDS: FERROUS SULFATE PO SCH (08:57)
[2017-02-12] MEDS: LOPRESSOR PO SCH ×2 (08:57→21:09)
[2017-02-12] MEDS: BYSTOLIC PO SCH (08:57)
[2017-02-12] MEDS: LYRICA PO SCH (08:59)
[2017-02-12] MEDS: PERICOLACE PO SCH (08:59)
[2017-02-12] MEDS: PERIDEX MT SCH ×2 (09:00→21:10)
--- NOTE | 2017-02-12 14:13 | PROGRESS NOTE ---
DATE: 02/12/2017 SUBJECTIVE: Ms. Hoang lying in bed this morning. Family members says she did a little better last night but it has still been little bit rough. She has been getting some sundowning it sounds like in the evenings and getting very confused. OBJECTIVE: Right lower extremity exam, just a little bit of serosanguineous drainage from both superior wound, none from the distal wound. Leg lengths looked fine. She is neurovascular intact right lower extremity. ASSESSMENT: Status post right trochanteric femoral nailing for hip fracture. PLAN: Ms Hoang's creatinine looks a little better this morning and her blood counts look fine after she has gotten 2 units of blood. She is still getting some sundowning in the evenings so I discussed with her family member that it may take still several more days before that will completely clear up. As far as the right hip I am okay with her being weight bear as tolerated right lower extremity. Physical therapy work with her today. cc: Aldair Cueva MD
--- NOTE | 2017-02-12 14:42 | PROGRESS NOTE ---
DATE: 02/12/2017 SUBJECTIVE: She apparently had a better night, although she is still picking at her IV and confused. When I asked her orientation, I do not think she knew where she was; she certainly did not know the month or the date. Her bowels: She has had 8 bowel movements. Family concerned about that. Previously they were concerned about constipation, so I think we will back down on her Colace and MiraLAX. She remains afebrile. We still have not gotten her up for physical therapy. OBJECTIVE: Vital signs: Temperature 97.6 degrees, pulse 78, respirations 17, blood pressure 161/61. Eyes: The pupils are equal, round. Lungs: Clear in all lung langston. Cardiovascular exam: Regular rhythm and rate without murmur or S3. Abdomen: Soft, nontender. Skin: Warm and dry. : Urine output is 2600. LAB: Hematocrit stable at 31 and hemoglobin 10.8. Chemistry: Sodium 140, potassium 3.3, chloride 107, BUN 21, creatinine 0.7. So, creatinine is improved as well. ASSESSMENT AND PLAN: 1. Acute kidney injury which is resolved, doing much better. 2. Hip fracture repair. We have not yet gotten her up and do weightbearing, so continue to pursue physical therapy. 3. Global metabolic encephalopathy multifactorial. I think anesthesia and also some underlying dementia suspected. We had stopped her opiate pain medicine; I think this is helping. 4. Microcytic anemia, acute blood loss anemia, which is stable. We will continue to have her on iron. 5. Frequent bowel movements. We will see if we can stop her Colace and MiraLAX. cc: Miguel Arevalo MD
[2017-02-12] MEDS: TIMOPTIC 0.5% OPH SOLUTION BOTH EYES SCH (21:09)
[2017-02-13 05:29] LABS: MANUAL DIFF NEEDED? NO
[2017-02-13 05:34] LABS: BASO% 0.3 % (0.0-0.8); EOS# 0.22 X1000 (0.0-0.7); EOS% 2.1 % (0.0-10.0); HEMATOCRIT 33.8 % (37.0-47.0); HEMOGLOBIN 11.6 g/dL (12.0-16.0); IMM GRAN# 0.07 X1000 (0.0-0.04); IMM GRAN% 0.7 % (0.0-0.5); LYMPH# 1.47 X1000 (1.2-3.4); MCH 29.4 PG (27-31); MCHC 34.3 g/dL (33-37); MCV 85.6 FL (81-99); MONO# 0.97 X1000 (0.11-0.59); MONO% 9.2 % (1.7-9.3); MPV 10.3 FL (7.4-10.4); NEUT% 73.7 % (42.2-75.2); PLT 244 X1000 (130-400); RBC 3.95 XMIL (4.2-5.4)
[2017-02-13] MEDS: LOVENOX SUBQ SCH (05:40)
[2017-02-13] MEDS ORDERED: CALMOSEPTINE OINTMENT TOP PRN (05:55)
[2017-02-13 06:05] LABS: AGAP 15; BUN 22 mg/dL (8-22); CHLORIDE 106 mmol/L (98-107); COSMO 284; MAGNESIUM 1.3 mg/dL (1.5-2.7); POTASSIUM 3.6 mmol/L (3.5-5.1); SODIUM 141 mmol/L (136-145); TCO2 20 mmol/L (25-35)
[2017-02-13 06:23] LABS: FREE T4 1.15 ng/dL (0.93-1.70)
[2017-02-13] MEDS: FERROUS SULFATE PO SCH (08:26)
[2017-02-13] MEDS: BYSTOLIC PO SCH (08:26)
[2017-02-13] MEDS: LOPRESSOR PO SCH ×2 (08:26→19:44)
[2017-02-13] MEDS: PERICOLACE PO SCH (08:31)
[2017-02-13] MEDS: LYRICA PO SCH (08:31)
[2017-02-13] MEDS: PERIDEX MT SCH (08:31)
--- NOTE | 2017-02-13 13:28 | PROGRESS NOTE ---
DATE: 02/13/2017 SUBJECTIVE: She had a night with more confusion. She did get up and they were able to get her in the chair yesterday. The family is concerned about confusion. She is not eating much at all yet. OBJECTIVE: Vital Signs: Temperature 98.6 degrees, pulse 78, respirations 16, blood pressure 152/70. Lungs: Clear in all lung langston. Cardiovascular: Regular rhythm and rate without murmur or S3. Abdomen: Soft. Skin: Is warm and dry. LAB: White count 10,490, hematocrit 33, platelet count 244,000. She did get a transfusion, 2 packs of units of packed red blood cells. ASSESSMENT AND PLAN: 1. Acute kidney injury, which has resolve and is better. 2. Hip fracture. Continue to encourage physical therapy and weightbearing. 3. Global metabolic encephalopathy with underlying dementia, suspected. 4. Macrocytic anemia. Has received some blood hematocrit is stable. Continue her present orders. NOTE: She was constipated, but then was having frequent bowel movements with MiraLAX and Colace. We have backed down on that. We will continue present regimen. cc: Miguel Arevalo MD
[2017-02-13] MEDS: TYLENOL PO PRN ×2 (15:55→19:44)
[2017-02-13] MEDS ORDERED: DESITIN OINTMENT TOP PRN (19:43)
[2017-02-13] MEDS: HALDOL IV PRN (19:44)
[2017-02-13] MEDS: TIMOPTIC 0.5% OPH SOLUTION BOTH EYES SCH (19:44)
[2017-02-14] MEDS: TYLENOL PR PRN (06:35)
[2017-02-14] MEDS: LOVENOX SUBQ SCH (06:35)
[2017-02-14] MEDS: TIMOPTIC 0.5% OPH SOLUTION BOTH EYES SCH ×3 (07:32→22:09)
[2017-02-14] MEDS: LOPRESSOR PO SCH ×4 (07:32→22:08)
[2017-02-14] MEDS: PERIDEX MT SCH ×4 (07:32→22:09)
[2017-02-14] MEDS: PERICOLACE PO SCH ×2 (08:52→09:16)
[2017-02-14] MEDS: LYRICA PO SCH (08:53)
[2017-02-14] MEDS: BYSTOLIC PO SCH (08:53)
[2017-02-14] MEDS: FERROUS SULFATE PO SCH (08:53)
[2017-02-14] MEDS: NS 1,000 ML IV SCH ×2 (08:53→18:29)
[2017-02-14] MEDS: TYLENOL PO PRN ×2 (10:35→15:29)
[2017-02-14] MEDS ORDERED: MAGNESIUM SULFATE 2 GM/S.W.I. 2 GM/50 ML IVPB IV ONE (14:00)
--- NOTE | 2017-02-14 15:50 | PROGRESS NOTE ---
DATE: 02/14/2017 SUBJECTIVE: A rough night again; confusion and picking at things. She does not know the time or place. She does know she is in the hospital, but I do not know if she knows which hospital. She is a little more confused today. She was given some Ambien yesterday and it seemed that her night was much worse following that. Her bowels are better. Will stop all stool softeners. OBJECTIVE: Vital Signs: Temp 98.2 degrees, pulse 70, respirations 18, blood pressure 133/68. Lungs: Clear in all lung langston. Cardiovascular exam: Regular rhythm and rate without murmur or S3. Abdomen: Soft. Skin: Warm and dry. : Urine output is good by report. LABS: White count 10,490, hematocrit 33, platelet count 244,000. Sodium 141, potassium 3.6, chloride 106, bicarbonate 20, BUN 22, creatinine 0.7, albumin 2.4, magnesium 1.3. ASSESSMENT AND PLAN: 1. Acute kidney injury which is resolved, much better following some fluids. Creatinine is 0.7. Urine output good by their report. Intake/output from yesterday: I do not see the output recorded. 2. Hip fracture. Need to continue to pursue therapy. She is yet to really bear much weight on it. 3. Global metabolic encephalopathy with underlying I think dementia. Supplement her magnesium. I am going to maybe try some Seroquel tonight. I think that we need to try and get her off of anything that is not essential. I am going to go ahead and stop the Lyrica and will give her some Seroquel tonight and supplement magnesium. cc: Miguel Arevalo MD
[2017-02-14] MEDS: SEROQUEL PO SCH ×2 (19:35→22:09)
[2017-02-14] MEDS: MAG-OX PO SCH ×2 (19:35→22:09)
[2017-02-15] MEDS: NS 1,000 ML IV SCH ×2 (05:03→19:03)
[2017-02-15] MEDS: LOVENOX SUBQ SCH (05:28)
[2017-02-15] MEDS: FERROUS SULFATE PO SCH (10:32)
[2017-02-15] MEDS: MAG-OX PO SCH ×3 (10:32→21:11)
[2017-02-15] MEDS: LOPRESSOR PO SCH ×4 (10:32→22:32)
[2017-02-15] MEDS: BYSTOLIC PO SCH (10:32)
[2017-02-15] MEDS: PERIDEX MT SCH ×3 (10:33→21:11)
--- NOTE | 2017-02-15 16:38 | PROGRESS NOTE ---
DATE: 02/15/2017 Ms. Hoang had a better night. Much more comfortable. The Seroquel seemed to be very effective. Her bowels have slowed down. Still working on her trying to do some physical therapy. She is getting down a little more Ensure. frustrated he cannot get her to eat a little more. Temp 97.6 degrees, pulse 79, respirations 18, blood pressure 155/73. Lungs: Are clear in all lung langston. Cardiovascular: Regular rhythm and rate without murmur or S3. Abdomen: Soft. Skin: Is warm and dry. Good urine output. ASSESSMENT AND PLAN: 1. Acute kidney injury. Much better. Tolerating fluids and creatinine down at 0.7. Good urine output. 2. Hip fracture with repair. Still working on getting her up weightbearing. This has been slowed down because of her encephalopathy and delirium. 3. Global metabolic encephalopathy worse at night. Seroquel seems to have helped. We retracted a lot of her other medicines including her Lyrica which I think has helped. 4. She had constipation. Gave her some laxatives and stools were plentiful so we have backed down. Hopefully this will continue to improve. cc: Miguel Arevalo MD
[2017-02-15] MEDS: TYLENOL PO PRN (16:48)
[2017-02-15] MEDS: SEROQUEL PO SCH ×3 (21:00→22:32)
[2017-02-15] MEDS: TIMOPTIC 0.5% OPH SOLUTION BOTH EYES SCH (21:07)
[2017-02-16] MEDS: BOUDREAUXS BUTT PASTE TOP PRN ×3 (01:00→08:35)
[2017-02-16] MEDS: HALDOL IM PRN ×3 (02:18→21:38)
[2017-02-16] MEDS: NS 1,000 ML IV SCH (02:32)
[2017-02-16] MEDS: LOVENOX SUBQ SCH (05:30)
[2017-02-16] MEDS: MAG-OX PO SCH ×2 (08:34→21:15)
[2017-02-16] MEDS: PERIDEX MT SCH ×2 (08:35→21:15)
[2017-02-16] MEDS: BYSTOLIC PO SCH (08:35)
[2017-02-16] MEDS: FERROUS SULFATE PO SCH (08:35)
[2017-02-16] MEDS: LOPRESSOR PO SCH ×2 (08:35→21:15)
--- NOTE | 2017-02-16 11:53 | PROGRESS NOTE ---
DATE: 02/16/2017 SUBJECTIVE: Ms. Hoang had a rough night. does not think she actually swallowed her Seroquel last night, so she was awake and agitated. She did take some steps yesterday. They are concerned about the rash in her groin which is consistent with a Jade yeast dermatosis. They have some cloth in there to help with absorption and and Mycostatin powder, but we will make sure we are OBJECTIVE: Vital Signs: Her temp is 97.9 degrees, pulse 70, respirations 16, blood pressure 167/60. Lungs are clear in all lung langston. Cardiovascular: Regular rhythm and rate without murmur or S3. Abdomen is soft. Skin is warm and dry. Good urine output. LABORATORY DATA: Reviewed from 02/13/2017. Probably will check some more in the morning. Hematocrit stable at 33. ASSESSMENT AND PLAN: 1. Acute kidney injury which resolved. Good urine output. Ko catheter is out. I would like to keep it out. 2. Hip fracture with repair. Working on her weightbearing. 3. Global metabolic encephalopathy which is I suspect is underlying dementia, worse at night for . Continue the Seroquel. I am not sure if she got to swallow it yesterday. 4. For her bowels, we have stopped all her laxatives and this is improving. Looking at her orders, she is getting the zinc oxide ointment. Her IV is out by the way. We are trying to keep the catheter out. Continue to try and keep her dry. Continue the Seroquel 50 mg at bedtime. We supplemented some magnesium and potassium and we will recheck her electrolytes and CBC in the morning. We will try some nystatin powder down there and around her groin as well. cc: Miguel Arevalo MD
[2017-02-16] MEDS: MYCOSTATIN POWDER TOP SCH ×2 (14:03→21:33)
[2017-02-16] MEDS: TYLENOL PO PRN ×2 (14:03→21:15)
[2017-02-16] MEDS: SEROQUEL PO SCH (21:16)
[2017-02-16] MEDS: TIMOPTIC 0.5% OPH SOLUTION BOTH EYES SCH (21:26)
[2017-02-17] MEDS: LOVENOX SUBQ SCH (06:49)
[2017-02-17] MEDS: TYLENOL PO PRN ×3 (06:49→21:11)
[2017-02-17] MEDS ORDERED: ATIVAN IM PRN (08:50)
--- NOTE | 2017-02-17 09:29 | PROGRESS NOTE ---
DATE: 02/17/2017 SUBJECTIVE: Ms. Hoang, according to her , did not have a good night. Nurses state that she had a pretty good night. I believe they gave her some Haldol at the daughter's request because she was agitated. She is not eating much. Still kind of picking at her food. I asked her, she is not oriented really to place or time at this point but she looks relaxed but she is oriented to person only at this point and seems to be slow to answer questions. OBJECTIVE: Vital Signs: Temperature 97.9 degrees, pulse 88, respirations 20, blood pressure 147/92. HEENT: Pupils are equal and round. Lungs: Clear in all lung langston. Cardiovascular Examination: Regular rhythm and rate without murmur or S3. Abdomen: Soft. Skin: Is warm and dry. Laboratory Data: Sodium, electrolytes, and CBC reviewed from the . I think I will check some more in the morning. Albumin is 2.4. ASSESSMENT AND PLAN: 1. Acute kidney injury, which is resolved. 2. Hip fracture with repair. 3. Global metabolic encephalopathy. I suspect underlying dementia, even though this is denied by family. We are going to continue to try and use the Seroquel. I think less medicine is going to be better for her as it is difficult because there is a lot of pressure from family to get her sleeping and get her eating. I am going to continue the Seroquel at night and see if we can avoid other medications. Encourage her to eat. She still has the Haldol as needed. We could certainly try some Ativan and that was at the family's request, and see if it will help. cc: Miguel Arevalo MD
[2017-02-17] MEDS: LOPRESSOR PO SCH ×2 (09:40→21:11)
[2017-02-17] MEDS: FERROUS SULFATE PO SCH (09:40)
[2017-02-17] MEDS: BYSTOLIC PO SCH (09:41)
[2017-02-17] MEDS: MAG-OX PO SCH ×2 (09:41→21:11)
[2017-02-17] MEDS: PERIDEX MT SCH ×2 (11:43→21:11)
[2017-02-17] MEDS: MYCOSTATIN POWDER TOP SCH ×2 (11:43→21:12)
[2017-02-17] MEDS: SEROQUEL PO SCH (21:12)
[2017-02-17] MEDS: TIMOPTIC 0.5% OPH SOLUTION BOTH EYES SCH (21:13)
[2017-02-18] MEDS: LOVENOX SUBQ SCH (06:49)
--- NOTE | 2017-02-18 09:17 | Diag Imaging Result Doc PS360 ---
EXAM: CHEST-PORTABLE HISTORY: confusion TECHNIQUE: AP portable at 0908 COMMENT: There is retrocardiac opacity in the left lower lobe and there are patchy opacities present in the right upper lobe. The latter appear to have been present on 02/08/2017. The left lower lobe opacity was not previously present. IMPRESSION: Development of atelectasis or pneumonia in the left lower lobe since the previous examination. Bronchiectasis, patchy bronchopneumonia right upper lobe. Electronically signed by Hari Ramos 02/18/2017 9:15 AM
[2017-02-18 09:42] LABS: MANUAL DIFF NEEDED? NO
[2017-02-18] MEDS: LOPRESSOR PO SCH ×2 (09:50→20:00)
[2017-02-18] MEDS: BYSTOLIC PO SCH (09:50)
[2017-02-18] MEDS: FERROUS SULFATE PO SCH (09:50)
[2017-02-18] MEDS: MAG-OX PO SCH ×2 (09:51→20:00)
[2017-02-18] MEDS: MYCOSTATIN POWDER TOP SCH ×2 (09:51→20:00)
[2017-02-18] MEDS: PERIDEX MT SCH (09:52)
[2017-02-18 10:04] LABS: BASO% 0.4 % (0.0-0.8); EOS# 0.06 X1000 (0.0-0.7); EOS% 0.6 % (0.0-10.0); HEMATOCRIT 35.3 % (37.0-47.0); HEMOGLOBIN 11.9 g/dL (12.0-16.0); IMM GRAN# 0.04 X1000 (0.0-0.04); IMM GRAN% 0.4 % (0.0-0.5); LYMPH# 1.68 X1000 (1.2-3.4); LYMPH% 16.3 % (20.5-51.1); MCH 30.2 PG (27-31); MCHC 33.7 g/dL (33-37); MCV 89.6 FL (81-99); MONO# 0.85 X1000 (0.11-0.59); MONO% 8.3 % (1.7-9.3); MPV 9.7 FL (7.4-10.4); PLT 436 X1000 (130-400); RBC 3.94 XMIL (4.2-5.4)
--- NOTE | 2017-02-18 10:18 | PROGRESS NOTE ---
DATE: 02/08/2017 The patient's family is still very frustrated. She is just very confused at night. Still she is not eating and not drinking much fluids and wanted IV fluid,s but they do not want the IV in. They wanted to know if there was a geriatric specialist here or somebody from [place], but they do not want to go to [place]. She is making a little progress with physical therapy, although very slow. She is not eating. PHYSICAL EXAMINATION: Vital Signs: Temperature 97.9 degrees, pulse 86, respirations 18, blood pressure 166/76. Lungs: Clear in all lung langston. Cardiovascular: Regular rate without murmur or S3. Abdomen: Soft. Skin: Warm and dry. Urine output 720 mL. LABORATORY DATA: From the , the hematocrit is stable at 33. Electrolytes look good. I am going to check some more blood work this morning. Magnesium was 1.3 back on the , so we will check some more electrolytes today. IMPRESSION AND PLAN: We will see if we can change her Seroquel to IM. She is getting magnesium oxide p.o. She gets the Ativan p.r.n. Continue physical therapy. Trying to get her up. I do not recommend NG tube or PEG tube placement, and they do not want that either. We may be forced to give her some IV fluids but right now, she does not appear to be dehydrated. Her urine output seems to be adequate. cc: Miguel Arevalo MD
[2017-02-18 10:22] LABS: AGAP 10; ALKALINE PHOSPHATASE 81 U/L (32-104); BUN 22 mg/dL (8-22); CALCIUM 10.4 mg/dL (8.8-10.2); CHLORIDE 100 mmol/L (98-107); COSMO 286; GOT 32 U/L (10-30); GPT 9 U/L (10-36); POTASSIUM 3.4 mmol/L (3.5-5.1); SODIUM 142 mmol/L (136-145); TCO2 32 mmol/L (25-35); TOTAL PROTEIN 5.3 g/dL (6.3-8.3)
[2017-02-18] MEDS ORDERED: POTASSIUM CHLORIDE 40 MEQ/SWI 40 MEQ/100 ML IVPB IV ONE (18:00)
[2017-02-18] MEDS ORDERED: MAGNESIUM SULFATE 2 GM/S.W.I. 2 GM/50 ML IVPB IV ONE (18:00)
[2017-02-18] MEDS ORDERED: POTASSIUM PHOSPHATE IV ONE (18:01)
[2017-02-18] MEDS ORDERED: NS IV ONE (18:01)
[2017-02-18] MEDS: NS 1,000 ML IV SCH (18:45)
[2017-02-18] MEDS: THIAMINE 100 MG in NS 50 ML IV SCH (19:38)
[2017-02-18] MEDS: NS IV SCH (19:38)
[2017-02-18] MEDS: FOLIC ACID IV SCH (19:38)
[2017-02-18] MEDS: SEROQUEL PO SCH (20:00)
--- NOTE | 2017-02-18 21:04 | Diag Imaging Result Doc PS360 ---
EXAM: HEAD W/O CONTRAST TECHNIQUE: Dose reduction protocol was used. INDICATION: confusion COMPARISON: 11/29/2014 FINDINGS: There is diffuse brain atrophy and mild patchy low attenuation in the periventricular and subcortical white matter suggesting mild microangiopathy, stable. There is no definite acute infarct given the limited sensitivity of CT versus MRI. There is no discrete intracranial mass, mass effect, or intracranial hemorrhage. The surrounding soft tissues and bony structures are essentially unremarkable. IMPRESSION: Stable chronic changes as described but no evidence of acute intracranial pathology. Electronically signed by Maksim Sage 02/18/2017 9:02 PM
[2017-02-18] MEDS: POTASSIUM CHLORIDE 20 MEQ/SWI 20 MEQ/100 ML IVPB IV SCH (22:24)
[2017-02-18] MEDS: ROCEPHIN 1 GM/NS 1 GM/50 ML IVPB IV SCH (22:24)
[2017-02-18] MEDS: TIMOPTIC 0.5% OPH SOLUTION BOTH EYES SCH (23:00)
[2017-02-19] MEDS: PERIDEX MT SCH (00:31)
[2017-02-19] MEDS: POTASSIUM CHLORIDE 20 MEQ/SWI 20 MEQ/100 ML IVPB IV SCH (01:40)
[2017-02-19 05:32] LABS: MANUAL DIFF NEEDED? NO
[2017-02-19 05:33] LABS: BASO% 0.3 % (0.0-0.8); EOS# 0.12 X1000 (0.0-0.7); EOS% 0.9 % (0.0-10.0); HEMATOCRIT 33.9 % (37.0-47.0); HEMOGLOBIN 11.2 g/dL (12.0-16.0); IMM GRAN# 0.04 X1000 (0.0-0.04); IMM GRAN% 0.3 % (0.0-0.5); LYMPH# 1.16 X1000 (1.2-3.4); MCV 90.9 FL (81-99); MONO# 0.95 X1000 (0.11-0.59); MONO% 7.4 % (1.7-9.3); MPV 9.5 FL (7.4-10.4); NEUT% 82.1 % (42.2-75.2); PLT 427 X1000 (130-400); RBC 3.73 XMIL (4.2-5.4)
[2017-02-19] MEDS: LOVENOX SUBQ SCH (05:36)
[2017-02-19 05:53] LABS: AGAP 6; ALBUMIN 2.7 g/dL (3.5-5.0); ALKALINE PHOSPHATASE 81 U/L (32-104); BUN 24 mg/dL (8-22); CALCIUM 9.7 mg/dL (8.8-10.2); CHLORIDE 105 mmol/L (98-107); COSMO 289; GOT 33 U/L (10-30); GPT 9 U/L (10-36); MAGNESIUM 2.5 mg/dL (1.5-2.7); POTASSIUM 4.1 mmol/L (3.5-5.1); SODIUM 143 mmol/L (136-145); TCO2 32 mmol/L (25-35); TOTAL BILIRUBIN 0.97 mg/dL (0.20-1.00); TOTAL PROTEIN 5.2 g/dL (6.3-8.3)
[2017-02-19] MEDS: NS 1,000 ML IV SCH (06:47)
--- NOTE | 2017-02-19 07:34 | Diag Imaging Result Doc PS360 ---
CHEST-PORTABLE - 02/19/2017 INDICATION: confusion TECHNIQUE: COMPARISON: 02/18/2017 FINDINGS: There is worsening ill-defined infiltrate in the right upper lobe. Stable retrocardiac consolidation and trace effusion. Heart size remains borderline enlarged. Pulmonary vascularity remains normal. IMPRESSION: Slight worsening right upper lobe infiltrate/pneumonia. Electronically signed by Cam Richard 02/19/2017 7:31 AM
[2017-02-19] MEDS: FERROUS SULFATE PO SCH (08:53)
[2017-02-19] MEDS: MAG-OX PO SCH ×2 (08:56→20:02)
[2017-02-19] MEDS: LOPRESSOR PO SCH ×2 (08:57→20:02)
[2017-02-19] MEDS: APRESOLINE PO SCH ×3 (08:57→20:02)
[2017-02-19] MEDS: MYCOSTATIN POWDER TOP SCH (08:58)
[2017-02-19] MEDS: TYLENOL PO PRN (09:12)
[2017-02-19] MEDS: COZAAR PO SCH ×2 (10:10→20:02)
[2017-02-19] MEDS: 1/2 NS 1,000 ML IV SCH ×2 (10:10→11:08)
--- NOTE | 2017-02-19 13:23 | PROGRESS NOTE ---
DATE: 02/19/2017 SUBJECTIVE: Ms. Hoang is a lot better. She is talking. She is eating a little bit of breakfast. Had a much better night. We supplemented some magnesium and potassium yesterday. Chest x-ray suggests a questionable infiltrate in the right upper lobe, slight worsening right upper lobe infiltrate, so will keep her on the Rocephin, but am encouraged that her mental status is improved. OBJECTIVE: Vital Signs: Temperature 97.4 degrees, pulse 80, respirations 16, blood pressure 209/90. She has ranged between 166 and 209 over 76 to 90. I will adjust for her blood pressure, as well. Lungs: Clear in all lung lang[place]. Cardiovascular: Regular rhythm and rate, without murmur or S3. Abdomen: Soft, nontender. Skin: Warm and dry. ASSESSMENT AND PLAN: 1. Hip fracture with repair. This was repaired by Dr. Cueva. She has been slow on physical therapy because of delirium, confusion, and weakness. But she had a right intertrochanteric hip fracture. 2. Delirium. Suspect underlying dementia, but has had a difficult time with it. We are giving her Seroquel 100 mg at bedtime. We have tried to eliminate any other medications that may contribute to the confusion and this morning she looks much better than yesterday, which is encouraging. We will continue present regimen. 3. We put an IV back in and gave her some fluid. She had hypomagnesemia, hypokalemia, and hypophosphatemia, so I supplemented these. I added some thiamine every day, and her folate was low, so I added some folate. She does appear better today, which is encouraging. 4. There is an infiltrate. Clinically, she does not appear to have pneumonia, but I am going to continue her on Rocephin and continue to try and pursue physical therapy and get some nutrition down. cc: Miguel Arevalo MD
--- NOTE | 2017-02-19 14:37 | PROGRESS NOTE ---
DATE: 02/19/2017 SUBJECTIVE: Apparently this patient looks better compared with the weekend. She is more alert. She is following commands for her daughter. She is not talking to me but apparently she recognizes her daughter in the morning and she said her name. She is not complaining of pain. She is confused. OBJECTIVE: Vital Signs: Temperature 98.1 degrees, pulse 86, respiratory rate 20, blood pressure 159/69, oxygen saturation 95% on room air. HEENT: Head normocephalic. No trauma. PERRLA. Neck: Supple. No JVD. No masses. Central trachea. Chest: Clear to auscultation. No wheezing. No rales. Abdomen: Soft, nontender, nondistended. No hepatosplenomegaly. Extremities: Right hip covered with a clean dressing. No sign of bleed or infection. Neurologic: This patient is hard of hearing. She is alert and she is following commands for her daughter but not for me. She is not talking to me either. She moves all 4 extremities. Apparently she started taking liquids today. LABORATORY: WBC 12.8, hemoglobin 11.2, hematocrit 33.9, platelets 427,000. Sodium 143, potassium 4.1, chloride 105, bicarbonate 32, BUN 24, creatinine 0.6, glucose 94, calcium 9.7, albumin 2.7. ASSESSMENT AND PLAN: 1. Right intertrochanteric hip fracture. Orthopedic surgery went to the OR with this patient and they placed a right trochanteric femoral nail in; that was done on 02/08/2017. Physical therapy is still on board. 2. Hypertension. The blood pressure has been high. I increased her dose of metoprolol and I added hydralazine. 3. Acute kidney injury. Resolved. Continue with IV fluids. 4. Hyperlipidemia, stable. 5. Hypothyroidism. I will ask the family for the amount of levothyroxine that she was on at home. I do not think she has been on 5 mcg daily. 6. Deep vein thrombosis prophylaxis. Continue with the same management. This patient is on Lovenox. 7. Altered mental status. This patient is still confused. Apparently she is doing a little bit better compared with the weekend. We will monitor. Neurology department has been consulted. cc: Rafael Palmer MD
--- NOTE | 2017-02-19 15:48 | Diag Imaging Result Doc PS360 ---
EXAM: BA SWALLOW W/VIDEO SPEECH THER - 02/19/2017 HISTORY: dysphagia and hx of esoph stricture TECHNIQUE: Modified barium swallow with speech pathologist. The fluoroscopy time is one minute 54 seconds. The radiation doses 162 mGy. COMPARISON: None. FINDINGS: The patient was given liquid barium and barium coated semisolid material to ingest by speech pathologist and the swallowing mechanism was observed fluoroscopically in the lateral projection. The patient was able to swallow both phases of material without substantial difficulty, once swallowing was initiated. There is extrinsic impression upon the posterior margin of cervical esophagus by anterior cervical spine osteophytes at C4-5, C5-6, and C6-7, most prominent at C6-7. There is no aspiration or laryngeal penetration observed during exam. Limited evaluation of the thoracic esophagus showed mild tertiary contractions with mild to and fro peristalsis on one or two swallows of the liquid barium, although this was not apparent on a second swallow the liquid barium. IMPRESSION: Anterior cervical spine osteophytes with some extrinsic impression upon the cervical esophagus, most prominent at C6-7. Some tertiary contractions of the thoracic esophagus with mild to and fro peristalsis. Electronically signed by Cem Daurte 02/19/2017 3:46 PM
[2017-02-19] MEDS: ROCEPHIN 1 GM/NS 1 GM/50 ML IVPB IV SCH ×2 (16:45→17:14)
--- NOTE | 2017-02-19 17:08 | CONSULTATION ---
DATE OF CONSULTATION: 02/19/2017 REASON FOR CONSULTATION: The patient is seen in consultation at the request of Dr. Arevalo for evaluation of altered mental status. HISTORY OF PRESENT ILLNESS: This is a 87-year-old female admitted with right hip fracture status post surgery. She has had some confusion in the hospital which has been ongoing. It seems to be worse at night and she is not sleeping at all per the . There have been some medication adjustments. Seroquel has been tried and recently increased. P.r.n. Ativan has been recently tried. Haloperidol has been used at times. The says that the daughter who is not present currently has concerns that the patient is not tolerating the Haldol and she becomes more agitated when she received this medication. He says that the daughter had asked about using Ativan instead. Seroquel was increased for last night's dose however the patient was taken for some sort of test after Seroquel was given and thinks this may have kept her up. Apparently she did not sleep last night and has not slept much since her hospitalization. Of note, the says that the patient has been taking Zanaflex, Remeron and Ambien at night every night for many years. In questioning about any memory loss or dementia symptoms denies this. He thinks that her memory has been relatively preserved. She still drives. She does occasionally misplace some of her items but he says that he does this as well and does not feel like it is a big problem. He feels like her executive functioning is intact. He feels that her gait strides are slightly shorter than the average person but says that this is because she has been dealing with some ankle swelling. He says she has good arm swing, good facial expressions and denies that she has a low monotonous voice. He denies any tremor. He denies frequent falls although she did trip over an object and fall recently which is how she broke her hip. PAST MEDICAL HISTORY: Notable for hypertension, hyperlipidemia, hypothyroidism , hysterectomy. FAMILY HISTORY: Her sister had some confusion while in a nursing facility in the last few months of her life. SOCIAL HISTORY: No smoking, drinking, or alcohol use. She is and lives with her . She does have children. ALLERGIES: To Zoloft and morphine. HOME MEDICATIONS: Again notable for Ambien, Zanaflex and Remeron at night. REVIEW OF SYSTEMS: Balance of 12 was conducted and is otherwise negative except that detailed in HPI. She is having hip pain and issues postsurgery. PHYSICAL EXAM: Afebrile, blood pressure 159 to 209 over 60s to 90s, pulse 80s, respirations 12. General: She is an elderly female supine in bed. No acute distress. at bedside. Neck: Supple. HEENT: Normocephalic. Moist mucous membranes. Sclerae anicteric. No erythema. Pulses are palpated. Extremities: Some mild swelling in the feet. Skin: Intact, warm, dry. Neuro: She is awake and alert. She is not oriented. She is confused. Unable to answer questions intelligibly. Speaks off topic. She does recognize her , she does regard, not naming items on command. PERRL. Conjugate gaze. Ocular movements full. Face symmetric with equal activation. She is at least against gravity in all of her extremities though she does not participate in full strength testing. No asymmetry identified though there is some limitation to the right leg likely due to the fracture. No obvious sensory disturbance on testing, no obvious incoordination with limited testing available. No tremor observed. There is a bit of rigidity in the upper extremities and perhaps some cogwheeling. There is reduced facial expression. Reflexes are reduced, appear symmetric. Toes mute, no clonus. DIAGNOSTICS: Noncontrasted head CT was personally reviewed. There are no acute findings. There is diffuse atrophy and some microangiopathy which is chronic. Chest x-ray from today reports slight worsening of the right lobe infiltrate/pneumonia. White blood cell increased from normal to 12.8 today. BUN 24, creatinine 0.6. AST 33. B12 greater than 2000, folate 8.7. TSH and free T4 normal. ASSESSMENT AND PLAN: 87-year-old female status post right hip fracture and surgical intervention who has been hospitalized and with confusion which does worsen at nighttime. 1. Acute delirium. I suspect this is superimposed upon at least a mild cognitive impairment that has been unrecognized. She does have some diffuse atrophy on head CT which could be more than expected for her age. If her delirium is worsening at nighttime this likely represents sundowning. She also does have some reduced facial expression and some rigidity with perhaps cogwheeling in the upper extremities although this can be difficult to assess fully in the acute hospital setting with ongoing illness. Agree with limiting any unnecessary medications. There are no good guidelines for medications to use in managing acute delirium and agitation unfortunately. Mostly nonpharmacologic agents such as reorienting, shades up, lights on during the daytime and quiet and dark at nighttime with limited interruptions by staff as able during the nighttime hours are recommended. Seroquel and similar agents have been used. I think the trial of Seroquel that has been started by the primary team is a reasonable option. The dose has been increased just yesterday so it is reasonable to see if this will help. Ativan would not be helpful here and may actually worsen her symptoms so I would recommend discontinuing this. It should be noted that she has been taking Remeron, Zanaflex and Ambien all at nighttime long-term and not having these medications while hospitalized may be contributing to her poor sleep. These may have been stopped due to potential side effects but I am not certain. Given her prolonged delirium I will order a routine EEG for evaluation. Thank you for this consultation. Will follow. cc: Alessia Lawrence MD MTDD
[2017-02-19] MEDS: FOLIC ACID IV SCH ×2 (17:28→17:34)
[2017-02-19] MEDS: NS IV SCH ×2 (17:28→17:34)
[2017-02-19] MEDS: THIAMINE 100 MG in NS 50 ML IV SCH (20:02)
[2017-02-19] MEDS: SEROQUEL PO SCH (20:03)
[2017-02-19] MEDS: TIMOPTIC 0.5% OPH SOLUTION BOTH EYES SCH (20:03)
[2017-02-19] MEDS: BOUDREAUXS BUTT PASTE TOP PRN (20:08)
[2017-02-20] MEDS: 1/2 NS 1,000 ML IV SCH ×3 (04:00→18:55)
[2017-02-20 05:40] LABS: BASO% 0.3 % (0.0-0.8); EOS% 0.5 % (0.0-10.0); HEMATOCRIT 30.9 % (37.0-47.0); HEMOGLOBIN 10.2 g/dL (12.0-16.0); IMM GRAN# 0.08 X1000 (0.0-0.04); IMM GRAN% 0.4 % (0.0-0.5); LYMPH# 1.74 X1000 (1.2-3.4); LYMPH% 8.3 % (20.5-51.1); MANUAL DIFF NEEDED? YES; MCH 30.1 PG (27-31); MCV 91.2 FL (81-99); MONO# 1.41 X1000 (0.11-0.59); MONO% 6.7 % (1.7-9.3); MPV 9.9 FL (7.4-10.4); NEUT% 83.8 % (42.2-75.2); PLT 399 X1000 (130-400); RBC 3.39 XMIL (4.2-5.4)
[2017-02-20 05:51] LABS: AGAP 10; BUN 23 mg/dL (8-22); CALCIUM 9.4 mg/dL (8.8-10.2); CHLORIDE 101 mmol/L (98-107); COSMO 285; POTASSIUM 3.5 mmol/L (3.5-5.1); SODIUM 141 mmol/L (136-145); TCO2 30 mmol/L (25-35)
[2017-02-20] MEDS: LOVENOX SUBQ SCH (06:41)
[2017-02-20 08:19] LABS: BANDS 2 % (0-1); HYPOCHROM 1+; LYMPHS 8 % (21-51); MONO 2 % (1-9)
[2017-02-20] MEDS: FERROUS SULFATE PO SCH (10:12)
[2017-02-20] MEDS: MAG-OX PO SCH ×2 (10:13→21:59)
[2017-02-20] MEDS: APRESOLINE PO SCH ×3 (10:34→22:01)
[2017-02-20] MEDS: COZAAR PO SCH ×2 (10:35→22:01)
[2017-02-20] MEDS: LOPRESSOR PO SCH ×2 (10:35→22:00)
[2017-02-20] MEDS: MYCOSTATIN POWDER TOP SCH ×3 (10:36→23:49)
--- NOTE | 2017-02-20 11:22 | Diag Imaging Result Doc PS360 ---
EXAM: CHEST-PORTABLE HISTORY: F/U pneumonia TECHNIQUE: COMPARISON: 02/19/2017 FINDINGS: Left lower lobe infiltrates and atelectasis persists. No change in the small left pleural effusion. There are also increased interstitial markings in the right apex. Heart is mildly prominent. The vessels are not distended. IMPRESSION: No definite improvement. Electronically signed by Tano Jonas 02/20/2017 11:20 AM
--- NOTE | 2017-02-20 11:54 | PROGRESS NOTE ---
DATE: 02/20/2017 Ms. Hoang is sitting up on the bedside with physical therapy attention, awake and alert, conversant. Speech is not dysarthric. I did not examine her cognitive function. Daughter at the bedside reports there has not been significant forgetfulness or other evidence of NURSE PRN decline prior to her surgery a few weeks ago, but she has been confused and altered mentally since then. As noted by Dr. Lawrence on her neurology consult note, there have been multiple medications. I agree with recommendation to continue quetiapine, try to manage without benzodiazepines. EEG has been ordered. Briefly discussed cholinesterase inhibitor trial with daughter, but that will not be effective quickly and will not be needed if she recovers with no cognitive deficit. No urgent suggestion today. cc: MD YOVANNY Guillaume III
--- NOTE | 2017-02-20 15:42 | PROGRESS NOTE ---
DATE: 02/20/2017 SUBJECTIVE: This patient looks about the same compared with yesterday. She is alert. She is following commands for her daughter. She is still talking to me but I was told that she has been talking on and off. She is not complaining of pain and she is still confused. We need to discuss with the family the possibility of a PEG tube. This patient is not eating and probably this fracture and all this stressful situation and hospitalization triggered her progression of dementia. Neurology Department is following this patient. We will monitor. OBJECTIVE: Vital Signs: Temperature 97.9 degrees, pulse 87, respiratory rate 20, blood pressure 119/59, oxygen saturation 99% on room air. HEENT: Head normocephalic. No trauma. PERRLA. Neck: Supple. No JVD. No masses. Central trachea. Chest: Clear to auscultation. No wheezing. No rales. Abdomen: Soft, nontender, nondistended. No hepatosplenomegaly. Extremities: Right hip covered with clean dressing. No sign of bleed or infection. Neurological: The patient is alert. She is hard of hearing. She is following commands for her daughter, but not for me and she is not consistent. She is not talking to me either. She moves all 4 extremities. Apparently she started taking liquids yesterday, but not today. LABORATORY: WBC 20.9, hemoglobin 10.2, hematocrit 30.9, platelets 239,000. Sodium 141, potassium 3.5, chloride 101, bicarbonate 30, BUN 23, creatinine 0.5, glucose 95, calcium 9.4. ASSESSMENT AND PLAN: 1. Right intertrochanteric hip fracture. Orthopedic Surgery went to the OR with this patient and they placed a right trochanteric femoral nail in. That was done on 02/08/2017. Physical Therapy is still board. 2. Leukocytosis, probably this patient has pneumonia, but I will also ask for a urinalysis and probably tomorrow we will get a CT scan to better define the pulmonary pathology. 3. Hypertension. Continue with the same management. 4. Acute kidney injury. Resolved. Continue with IV antibiotics. 5. Hyperlipidemia, stable. 6. Hypothyroidism. I need to ask the family about the levothyroxine on this patient. 7. Deep vein thrombosis prophylaxis. Continue with the same management. This patient is on Lovenox. 8. Altered mental status. Like I mentioned before, this patient is confused, but apparently she is a little bit better compared with the weekend. We will monitor. Neurology Department has been on board. cc: Rafael Palmer MD
[2017-02-20 17:21] LABS: URINE MICRO REVIEW NEEDED? NO; URINE SOURCE CLEAN CATCH
--- NOTE | 2017-02-20 17:23 | PROGRESS NOTE ---
DATE: 02/20/2017 SUBJECTIVE: I had a 20 minute discussion with the patient's daughter today. Her swallow study showed discoordination of her swallowing muscles. According to speech pathology, this finding is characteristic of dementia. Once the swallow passed the upper esophageal sphincter, there was no evidence of obstruction and according to radiology it emptied well from the gastric lumen. She did have anterior osteophytes with some extrinsic compression in the cervical esophagus at C6 and 7. There were some mild tertiary contractions in the thoracic esophagus with mild to and fro peristalsis. Overall, there was no evidence of obstruction although further evaluation was recommended because there was the possibility of cricopharyngeal achalasia. I discussed with the daughter the options for her care including continued p.o. intake versus PEG placement versus NG tube placement with subsequent PEG placement and IV nutrition. The family would like to pursue oral intake at this time as they want to use TPN or PPN versus a PEG placement as a last resort. They report that the patient was eating well and taking care of herself on a limited basis prior to her fall. Their hope is that she will return to her pre-fall baseline. OBJECTIVE: Vital signs: On exam, her blood pressure is 119/59, pulse of 87, respirations 20, temperature of 97.9 degrees. OBJECTIVE DATA: Reveals a hemoglobin of 10.2 with hematocrit of 30.9 and a white count of 20.91 which is a marked increase from her leukocytosis noted on 02/19/2017. She has 399,000 platelets. Sodium is 141, potassium 3.5, chloride 101, CO2 of 30, BUN 23, creatinine 0.5 with a glucose in 95 and a calcium of 9.4. IMPRESSIONS: 1. 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 2. Poor p.o. intake. 3. Protein calorie malnutrition. 4. Constipation. RECOMMENDATION: 1. We attempted to obtain a gastric emptying study today. Unfortunately, the patient was unable to swallow her food which pooled in her mouth and she subsequently spit the food out. The swallow study was canceled. We are placing her on a mechanical soft diet in an effort to see if she will increase her oral intake. 2. We discussed the risks and benefits of PEG placement versus NG tube placement versus PPN. I recommend PPN over the weekend to see if she is able to increase her oral intake. The family is reluctant to place a percutaneous gastrostomy feeding tube at this time. They will consider it as a last ditch effort if she fails to improve. 3. The patient has a progressive leukocytosis of unknown origin. If there is infection, this may be contributing to her poor oral intake. I have discuss this with Dr. Palmer who is in the process of evaluating the leukocytosis. 4. Depending on her clinical course over the next few days, she may benefit from an EGD with possible dilation. If we have to dilate, it would be prudent to place a PEG at that time to avoid sedation more than once given her age and her overall risk benefit profile. 5. Dr. Law Padilla is covering until February 27, 2017. I will give him an update regarding her care. Please feel free to contact me by cell phone if you have any additional questions over the weekend. Recommendations have been discussed with Dr. Palmer. cc: MD Rafael Marrero MD Kirk L. Jackson, MD
--- NOTE | 2017-02-20 17:30 | CONSULTATION ---
DATE OF CONSULTATION: 02/19/2017 REFERRING PHYSICIAN: Rafael Palmer M.D. PRIMARY CARE PROVIDER: Raheem Ramos M.D. INDICATION FOR CONSULTATION: Poor p.o. intake. HISTORY OF PRESENT ILLNESS: The patient is an 87-year-old white female who has a past medical history of hypertension, hyperlipidemia, hypothyroidism and dementia. On the day of admission, she presented with dizziness. She had a fall at home, but did not lose consciousness. She was admitted to the hospital with a right hip fracture that required intervention. She sustained a right trochanteric femoral fracture and underwent nailing of the right hip trochanter. Her postoperative course has been complicated by poor p.o. intake and failure to thrive. We were asked to evaluate the patient due to her inability to eat. According to the family, she holds food in her mouth for long periods of time with failure to initiate a swallow. In addition, she tends to spit solid food out. She is tolerating liquids, including clear liquids and Ensure. In the postop setting, she was also noted to have constipation. This is resolved with MiraLAX and Colace. We are asked to assist in evaluating her feeding. According to the chart, the patient and the family are reluctant to have a PEG placed unless this is a last resort. They have consider parenteral nutrition, but would like to continue oral intake as long as possible. PAST MEDICAL HISTORY: 1. Hypertension. 2. Hyperlipidemia. 3. Hypothyroidism. 4. First degree AV block. 5. Right hip fracture this admission. 6. Urinary tract infection. 7. Unplanned weight loss. 8. Chronic depression. 9. Anxiety. 10. Osteoarthritis. 11. 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 12. Dyslipidemia. PAST SURGICAL HISTORY: 1. Hysterectomy. 2. Nailing of right hip fracture. SOCIAL HISTORY: Negative for alcohol, tobacco or recreational drug use. Please note that the patient does dip snuff according to the . FAMILY HISTORY: Positive for coronary artery disease. MEDICATION ALLERGIES: 1. Zoloft. 2. Morphine. HOME MEDICATIONS: 1. Ambien. 2. Ultracet. 3. Zanaflex. 4. Demerol. 5. Lyrica. 6. Benicar. 7. Bystolic. 8. Remeron. 9. Synthroid. 10. TriCor. REVIEW OF SYSTEMS: The patient was sitting in the chair. She had some interaction, but most of the time stared into space. She did deny abdominal pain and chest pain when asked directly. She nodded her head yes when I asked if she was hungry. The majority of the history was obtained from the patient's who is at bedside. He notes that she is more alert mid day. She struggles with morning. He notes that she has not been sleeping well since admission, and he attributes that to the fact that many of her sleeping medicines have been held. She is currently being evaluated by Neurology due to her altered mental status thought to be a metabolic encephalopathy. PHYSICAL EXAMINATION: General: She is in no acute distress. Vital signs: Her blood pressure is 177/73, pulse 85, respirations 16, temperature of 98.1 degrees. HEENT: Negative for jaundice. Her conjunctivae are pale. Her oropharyngeal mucosa membranes are moist. Pulmonary: She has decreased breath sounds in the bases bilaterally, but otherwise her lungs are clear. Cardiovascular: Reveals a regular rate and rhythm with no gallops, murmurs, or rubs. Abdominal: Reveals normoactive bowel sounds. The abdomen is soft, nontender, with no rebound or guarding. Extremities: Bilaterally are negative for cyanosis, clubbing, or edema. : It should be noted that the patient was incontinent of urine. OBJECTIVE DATA: Reveals a hemoglobin of 11.2 with hematocrit of 33.9, and a white count of 12.88. She has 427,000 platelets. Sodium is 143, potassium 4.1, chloride 105, CO2 32, BUN 24, creatinine 0.6, and glucose of 94. Calcium is 9.7, magnesium 2.5, total bilirubin 0.97, AST 33, ALT 9, alkaline phos 81, total protein 5.2 and albumin 2.7. IMPRESSION: 1. Anorexia. 2. Dysphagia. 3. Anemia. 4. Elevated white blood cell count. 5. Protein calorie malnutrition. 6. Recent history of constipation, improved. 7. Dementia. RECOMMENDATION: 1. The patient's notes that the patient had an esophageal stricture due to a Schatzki's ring approximately 20 years ago. She apparently underwent EGD with esophageal dilation in [place], [place] using a Ortiz dilator. She has had no additional recurrences over the last 20 years. In light of this, I recommend we get a modified barium swallow. 2. It is unclear if the patient has a component of gastroparesis, especially since she has developed postoperative constipation. Depending on the swallow study, I recommend a gastric emptying study. 3. We had a lengthy discussion about the possibility of PEG placement. The is reluctant to consider PEG placement until he has a chance to speak with his daughter. I will table this discussion until tomorrow. 4. If the swallow study is negative, I would check a KUB to assess for persistent constipation. It is noted that she has had no bowel movement since the . 5. If she is unable to the eat, she may require a nasogastric tube for enteral nutrition. The patient's family is reluctant to consider this at this time as very concerned that the patient will dislodge the feeding tube. 6. We have agreed after a 20 minute discussion to table further intervention until we have the results of her gastric emptying study and her modified barium swallow. 7. It should be noted that in dementia, enteral feedings via PEG tube are not generally recommended as it does not reverse the primary disease state which is progression of her dementia. It may be helpful to have a family discussion so that all parties are present. It may also be helpful to involve Dr. Raheem Ramos given his ongoing relationship with this patient. 8. Additional recommendations to follow based on her clinical course. cc: MD Rafael Marrero MD Kirk L. Jackson, MD MTDD
[2017-02-20 17:33] LABS: BILIRUBIN URINE NEGATIVE (NEGATIVE); BLOOD URINE NEGATIVE (NEGATIVE); COLOR YELLOW; GLUCOSE URINE NEGATIVE (NEGATIVE); LEUKOCYTES URINE NEGATIVE (NEGATIVE); NITRITE URINE NEGATIVE (NEGATIVE); PH URINE 6.5; PROTEIN URINE TRACE mg/dL (NEGATIVE); SP GRAVITY URINE 1.016; TURBIDITY URINE CLEAR (CLEAR); UROBILINOGEN URINE NORMAL (NORMAL)
[2017-02-20 17:34] LABS: UR EPITHELIAL CELLS <10 /HPF (<10); URINE BACTERIA NEGATIVE /HPF; URINE RBC <10 /HPF (<10); URINE WBC <10 /HPF (<10)
[2017-02-20] MEDS: ROCEPHIN 1 GM/NS 1 GM/50 ML IVPB IV SCH (18:55)
[2017-02-20] MEDS: NS IV SCH (21:44)
[2017-02-20] MEDS: FOLIC ACID IV SCH (21:44)
[2017-02-20] MEDS: MELATONIN PO SCH (21:45)
[2017-02-20] MEDS: SEROQUEL PO SCH (21:45)
[2017-02-20] MEDS: TIMOPTIC 0.5% OPH SOLUTION BOTH EYES SCH (22:01)
[2017-02-20] MEDS: THIAMINE 100 MG in NS 50 ML IV SCH (23:48)
[2017-02-21] MEDS: LOVENOX SUBQ SCH (05:26)
[2017-02-21 05:33] LABS: MANUAL DIFF NEEDED? NO
[2017-02-21 05:37] LABS: BASO% 0.4 % (0.0-0.8); EOS# 0.14 X1000 (0.0-0.7); HEMATOCRIT 28.3 % (37.0-47.0); HEMOGLOBIN 9.2 g/dL (12.0-16.0); IMM GRAN# 0.05 X1000 (0.0-0.04); IMM GRAN% 0.4 % (0.0-0.5); LYMPH# 1.96 X1000 (1.2-3.4); MCH 29.8 PG (27-31); MCHC 32.5 g/dL (33-37); MCV 91.6 FL (81-99); MONO# 1.13 X1000 (0.11-0.59); MONO% 8.1 % (1.7-9.3); NEUT% 76.1 % (42.2-75.2); PLT 373 X1000 (130-400); RBC 3.09 XMIL (4.2-5.4)
[2017-02-21 06:00] LABS: AGAP 11; BUN 23 mg/dL (8-22); CALCIUM 9.4 mg/dL (8.8-10.2); CHLORIDE 99 mmol/L (98-107); COSMO 278; POTASSIUM 3.3 mmol/L (3.5-5.1); SODIUM 138 mmol/L (136-145); TCO2 28 mmol/L (25-35)
[2017-02-21] MEDS: 1/2 NS 1,000 ML IV SCH ×2 (09:59→10:00)
[2017-02-21] MEDS: LOPRESSOR PO SCH ×2 (10:01→21:33)
[2017-02-21] MEDS: COZAAR PO SCH ×2 (10:01→21:33)
[2017-02-21] MEDS: MAG-OX PO SCH ×2 (10:01→21:34)
[2017-02-21] MEDS: APRESOLINE PO SCH ×3 (10:01→21:33)
[2017-02-21] MEDS: FERROUS SULFATE PO SCH (10:01)
[2017-02-21] MEDS: MYCOSTATIN POWDER TOP SCH ×2 (10:02→21:35)
[2017-02-21] MEDS: POTASSIUM CHLORIDE 20 MEQ/SWI 20 MEQ/100 ML IVPB IV SCH ×2 (10:03→12:31)
--- NOTE | 2017-02-21 12:04 | PROGRESS NOTE ---
DATE: 02/21/2017 Ms. Hoang is awake, alert, attentive. She identified her daughter correctly by name at the bedside. She was not able to tell me the name of the hospital or that this is a hospital. She followed simple commands consistently. She used all limbs. I did not test her cognitive function further. Today, there is a different daughter at the bedside and she reports noticing forgetfulness for at least 6 months or so before recent illness. 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 That predisposes her to more prominent and more protracted encephalopathy with any toxic or metabolic disturbance. She seems to be stable and improving from that standpoint now. I discussed cholinesterase inhibitor trial with daughter. I do not think that is urgent. I do not have any new suggestion today. Thanks for allowing neurology to follow Ms. Hoang. cc: MD YOVANNY Guillaume III
--- NOTE | 2017-02-21 16:02 | PROGRESS NOTE ---
DATE: 02/21/2017 SUBJECTIVE: This patient looks better today. She is still alert, but she is talking. She was not answering any kind of question for me before, but some answers are not appropriate. Also, apparently, she has been eating a little bit better but not that much, just bites. The family states that she is not choking while she is swallowing. Yesterday, I started this patient with melatonin and it looks like she slept the whole night. I will continue with the same management. We have been discussing about the possibility of placing a PEG tube on this patient. They will discuss this with the gastroenterology department. Will continue to monitor. OBJECTIVE: Vital Signs: Temperature 98.3 degrees, pulse 72, respiratory rate 18, blood pressure 163/78, oxygen saturation 98 on room air. HEENT: Head normocephalic. No trauma. PERRLA. Neck: Supple. No JVD. No masses. Central trachea. Chest: Clear to auscultation. No wheezing. No rales. Abdomen soft, nontender, nondistended. No hepatosplenomegaly. Extremity: Right hip covered with clean dressing. No signs of bleed or infection. Neurological: The patient is alert. She is hard of hearing. She is following commands for the family and also for me, but she is not consistent. She is talking to me and to the family but some of the answers are not appropriate. She moves all 4 extremities. She looks more cooperative today. LABORATORY: WBC 13.9, hemoglobin 9.2, hematocrit 28.3, platelets 373,000. Sodium 138, potassium 3.3, chloride 99, bicarbonate 28. BUN 23, creatinine 0.6, glucose 78, calcium 9.4. ASSESSMENT AND PLAN: 1. Right intertrochanteric hip fracture. Orthopedic surgery went to the OR and they placed a right trochanteric femoral nail in. That was done on 02/08/2017. Physical therapy is still on board. 2. Leukocytosis. This is getting better. This patient is still on antibiotics. She does not have any chills or fever documented. 3. Hypertension. Continue with the same management. 4. Acute kidney injury, resolved. Continue with IV antibiotics. 5. Hyperlipidemia, aware. 6. Hypothyroidism, aware. 7. Deep vein thrombosis prophylaxis. Continue with the same management. This patient is on Lovenox. 8. Altered mental status. This is getting better. We will continue to monitor. Neurology Department is following this patient pending EEG report. cc: Rafael Palmer MD
[2017-02-21] MEDS: ROCEPHIN 1 GM/NS 1 GM/50 ML IVPB IV SCH (18:00)
[2017-02-21] MEDS: NS IV SCH (18:46)
[2017-02-21] MEDS: FOLIC ACID IV SCH (18:46)
--- NOTE | 2017-02-21 20:27 | PROGRESS NOTE ---
DATE: 02/21/2017 PRIMARY GASTROLOGIST: Dr. Rosa Mclean. SUBJECTIVE: Still not eating well. She did eat few sips and bites of food here and there. OBJECTIVE: Patient is resting comfortably, however, she is confused and not answering questions appropriately. VSS Abdomen is soft and nontender GS audible. A/P: Dysphagia: I was asked to see the patient and discuss the procedure of PEG tube placement pros and cons. I spent almost half an hour with discussion with the patient's daughters and her , explained to them the procedure itself, the risks, benefits, alternatives and they understood and want to wait for few days to see if she can start eating on her own before they decide about PEG tube placement. While she was talking to her, I offered her some Ensure and she was able to drink at least 4 sips on my insistence. Respecting the family's wishes, I would hold off proceeding with any invasive measures yet. We will await their advise and if they would like to proceed with the PEG tube placement or feeding tube placement, we will do so. I will be available if needed. cc: Law Padilla MD MTDD
[2017-02-21] MEDS: MELATONIN PO SCH (21:32)
[2017-02-21] MEDS: THIAMINE 100 MG in NS 50 ML IV SCH (21:32)
[2017-02-21] MEDS: SEROQUEL PO SCH (21:33)
[2017-02-21] MEDS: TIMOPTIC 0.5% OPH SOLUTION BOTH EYES SCH (21:35)
[2017-02-22] MEDS: 1/2 NS 1,000 ML IV SCH ×3 (04:10→17:44)
[2017-02-22 05:56] LABS: MANUAL DIFF NEEDED? NO
[2017-02-22 05:59] LABS: BASO% 0.4 % (0.0-0.8); EOS# 0.34 X1000 (0.0-0.7); EOS% 3.4 % (0.0-10.0); HEMATOCRIT 29.4 % (37.0-47.0); HEMOGLOBIN 9.4 g/dL (12.0-16.0); IMM GRAN# 0.04 X1000 (0.0-0.04); IMM GRAN% 0.4 % (0.0-0.5); LYMPH# 1.29 X1000 (1.2-3.4); LYMPH% 12.8 % (20.5-51.1); MCH 29.4 PG (27-31); MCV 91.9 FL (81-99); MONO# 1.12 X1000 (0.11-0.59); MONO% 11.1 % (1.7-9.3); MPV 10.1 FL (7.4-10.4); NEUT% 71.9 % (42.2-75.2); PLT 390 X1000 (130-400)
[2017-02-22] MEDS: SYNTHROID PO SCH (06:05)
[2017-02-22] MEDS: LOVENOX SUBQ SCH (06:05)
[2017-02-22 07:04] LABS: AGAP 13; BUN 21 mg/dL (8-22); CHLORIDE 101 mmol/L (98-107); COSMO 276; POTASSIUM 3.6 mmol/L (3.5-5.1); SODIUM 137 mmol/L (136-145); TCO2 23 mmol/L (25-35)
[2017-02-22] MEDS: LOPRESSOR PO SCH ×2 (09:45→20:52)
[2017-02-22] MEDS: FERROUS SULFATE PO SCH (09:45)
[2017-02-22] MEDS: APRESOLINE PO SCH ×3 (09:45→20:52)
[2017-02-22] MEDS: MAG-OX PO SCH ×2 (09:45→20:52)
[2017-02-22] MEDS: COZAAR PO SCH ×2 (09:45→20:52)
[2017-02-22] MEDS: MYCOSTATIN POWDER TOP SCH ×2 (09:46→20:00)
--- NOTE | 2017-02-22 13:16 | PROGRESS NOTE ---
DATE: 02/22/2017 SUBJECTIVE: This patient looks stable. She is alert and she is oriented to person. She is able to recognize her daughter and say her name. She is following commands. She is tolerating diet, but just sips. Apparently this patient slept on and off during the night. I will increase the dose of melatonin from 3-5 before bed. OBJECTIVE: Vital Signs: Temperature 98.3 degrees, pulse 75, respiratory rate 14, blood pressure 173/89, oxygen saturation 98 on room air. HEENT: Head normocephalic. No trauma. PERRLA. Neck: Supple. No JVD. No masses. Central trachea. Chest: Clear to auscultation. No wheezing. No rales. Abdomen: Soft, nontender, nondistended. No hepatosplenomegaly. Extremities: Right hip covered with clean dressing and she has some diffuse ecchymosis around it. Neurological examination: The patient is alert. She is hard of hearing. She is following commands. She is oriented to person. She is able to recognize family members and she was able to say her daughter's name. She is tolerating p.o., but she is not eating too much. LABORATORY: WBC 10.0, hemoglobin 9.4, hematocrit 29.4, platelets 390. Sodium 137, potassium 3.6, chloride 101, bicarbonate 23, BUN 21, creatinine 0.5, glucose 82, calcium 9. ASSESSMENT AND PLAN: 1. Right intertrochanteric hip fracture. Orthopedic surgery went to the operating room, and they placed a right trochanteric femoral nail in. That was done on 02/08/2017. Physical therapy still on board. We will continue to monitor. 2. Leukocytosis, resolved. 3. Hypertension. I increased the dose of hydralazine from 10 mg oral three times a day to 25 mg oral three times a day. We will continue to monitor. 4. Acute kidney injury, resolved. 5. Hyperlipidemia. Continue with the same management. 6. Hypothyroidism. Continue with the same management. 7. Deep vein thrombosis prophylaxis. This patient is on Lovenox. 8. Altered mental status. This is getting better. We will continue to monitor. Neurology Department is following this patient pending electroencephalogram report. 9. Nutritional status: This patient is tolerating a little bit of fluids. They are evaluating the possibility of placing a percutaneous endoscopic gastrostomy tube on this patient. Let us see how she does during the weekend. cc: Rafael Palmer MD
[2017-02-22] MEDS: TYLENOL PO PRN (14:30)
[2017-02-22] MEDS: ROCEPHIN 1 GM/NS 1 GM/50 ML IVPB IV SCH (17:45)
[2017-02-22] MEDS: NS IV SCH (18:34)
[2017-02-22] MEDS: FOLIC ACID IV SCH (18:34)
[2017-02-22] MEDS: TIMOPTIC 0.5% OPH SOLUTION BOTH EYES SCH (20:00)
[2017-02-22] MEDS: THIAMINE 100 MG in NS 50 ML IV SCH (20:00)
[2017-02-22] MEDS: MELATONIN PO SCH (20:52)
[2017-02-22] MEDS: SEROQUEL PO SCH (20:52)
[2017-02-23] MEDS: SYNTHROID PO SCH (06:11)
[2017-02-23] MEDS: LOVENOX SUBQ SCH (06:11)
[2017-02-23] MEDS: LOPRESSOR PO SCH ×2 (10:20→20:43)
[2017-02-23] MEDS: MYCOSTATIN POWDER TOP SCH ×2 (10:20→21:55)
[2017-02-23] MEDS: MAG-OX PO SCH ×2 (10:20→20:43)
[2017-02-23] MEDS: COZAAR PO SCH ×2 (10:20→20:43)
[2017-02-23] MEDS: APRESOLINE PO SCH ×3 (10:20→20:43)
[2017-02-23] MEDS: FERROUS SULFATE PO SCH (10:20)
--- NOTE | 2017-02-23 14:09 | PROGRESS NOTE ---
DATE: 02/23/2017 SUBJECTIVE: This patient looks stable. Today, she is not talking to me. Apparently, she was talking with the daughter in the morning and she was able to recognize her. She is following commands though. She is tolerating diet, but she did not eat much in the morning or right now at lunch, just bites. OBJECTIVE: Vital Signs: Temperature 98.1, pulse 106, respiratory rate 20, blood pressure 130/62, oxygen saturation 97% on room air. HEENT: Head normocephalic. No trauma. PERRLA. Neck: Supple. No JVD. No masses. Central trachea. Chest: Clear to auscultation. No wheezing. No rales. Abdomen: Soft, nontender, nondistended. No hepatosplenomegaly. Extremity: Right hip is covered with a clean dressing and she has some diffuse ecchymosis around it. Neurological: The patient is alert. She is hard of hearing. She is following commands and she is not talking to me. Apparently in the morning she was able to recognize her daughter and say her name. She moved all 4 extremities. LABORATORY: WBC 10, hemoglobin 9.4, hematocrit 29.4, platelets 390. Sodium 137, potassium 3.6, chloride 101, bicarbonate 23, BUN 21, creatinine 0.5, glucose 82, calcium 9. ASSESSMENT AND PLAN: 1. Right intertrochanteric hip fracture. Orthopedic surgery went to the operating room and they placed a right trochanteric femoral nail in. That was done on 02/08/2017. Physical therapy is still on board. We will continue to monitor. 2. Leukocytosis, resolved. 3. Hypertension, stable. 4. Acute kidney injury. Resolved. 5. Hyperlipidemia continue with the same management. 6. Hypothyroidism continue with home medication. 7. Deep vein thrombosis prophylaxis with Lovenox. 8. Altered mental status. This is getting a little bit better, but she has been on and off with her mental changes. Yesterday she was a little bit better compared with today. 9. Nutritional status. This patient is tolerating diet, but some bites in the morning and some bites during lunch. The plan is to probably place a PEG tube on this patient. We are following this patient during this weekend to see how she does to decide if she needs it or not. cc: Rafael Palmer MD
[2017-02-23] MEDS: NS IV SCH (18:04)
[2017-02-23] MEDS: FOLIC ACID IV SCH (18:04)
[2017-02-23] MEDS: TYLENOL PO PRN (18:04)
[2017-02-23] MEDS: ROCEPHIN 1 GM/NS 1 GM/50 ML IVPB IV SCH (18:04)
[2017-02-23] MEDS: SEROQUEL PO SCH (20:43)
[2017-02-23] MEDS: MELATONIN PO SCH (20:43)
[2017-02-23] MEDS: THIAMINE 100 MG in NS 50 ML IV SCH (21:34)
[2017-02-23] MEDS: TIMOPTIC 0.5% OPH SOLUTION BOTH EYES SCH (21:55)
[2017-02-24] MEDS ORDERED: NS 500 ML IV ONE (01:45)
[2017-02-24] MEDS: 1/2 NS 1,000 ML IV SCH ×2 (02:22→17:29)
[2017-02-24] MEDS: COZAAR PO SCH ×3 (02:23→20:59)
[2017-02-24] MEDS: APRESOLINE PO SCH ×4 (02:23→20:59)
[2017-02-24] MEDS: MAG-OX PO SCH ×3 (02:24→20:59)
[2017-02-24] MEDS: LOPRESSOR PO SCH ×3 (03:08→20:59)
[2017-02-24] MEDS: SYNTHROID PO SCH ×2 (05:49→06:12)
[2017-02-24] MEDS: LOVENOX SUBQ SCH (05:49)
[2017-02-24] MEDS: FERROUS SULFATE PO SCH (09:20)
[2017-02-24] MEDS: MYCOSTATIN POWDER TOP SCH ×2 (09:21→21:00)
--- NOTE | 2017-02-24 14:54 | PROGRESS NOTE ---
DATE: 02/24/2017 SUBJECTIVE: This patient looks stable. Today she is talking, she is able to say her name and her 's name, she is following commands but she is still confused. She is not eating solids, she is drinking just fluids today. Apparently she slept most of the night as well. OBJECTIVE: Vital Signs: Temperature 98.4 degrees, pulse 85, respiratory rate 20, blood pressure 152/54, O2 saturation 98 on room air. HEENT: Head normocephalic. No trauma. PERRLA. Neck: Supple. No JVD. No masses. Central trachea. Chest: Clear to auscultation. No wheezing. No rales. Abdomen: Soft, nontender, nondistended. No hepatosplenomegaly. Extremity: The right hip is covered with a clean dressing and she has some diffuse ecchymoses around it. Neurological: The patient is alert. She is hard of hearing, she is following commands. She is talking more today. She is able to say her name and her 's name and she is not answering most of my questions. She is following commands and apparently she slept most of the night. LABORATORY: No lab work done today. ASSESSMENT AND PLAN: 1. Right intertrochanteric hip fracture status post right trochanteric femoral nail that was done on 02/08/2017. Continue physical therapy. 2. Leukocytosis resolved. 3. Hypertension stable. 4. Acute kidney injury. Resolved. 5. Hyperlipidemia. Continue with home medication. 6. Hypothyroidism. Continue with home medication. 7. Deep vein thrombosis prophylaxis with Lovenox. 8. Altered mental status. Probably this will be with her baseline, probably she has a baseline dementia that was more evident after the surgery. Pending EEG results and Neurology recommendations. 9. Nutritional status. This patient is tolerating diet, some bites and drinks but is not enough, the plan is to probably place a PEG tube on this patient. We are following this patient during the weekend to see how she does and decide if she needs a PEG tube or not. cc: Rafael Palmer MD
[2017-02-24] MEDS: NS IV SCH ×2 (17:24→18:25)
[2017-02-24] MEDS: ROCEPHIN 1 GM/NS 1 GM/50 ML IVPB IV SCH (17:24)
[2017-02-24] MEDS: FOLIC ACID IV SCH ×2 (17:24→18:25)
[2017-02-24] MEDS: THIAMINE 100 MG in NS 50 ML IV SCH (20:59)
[2017-02-24] MEDS: SEROQUEL PO SCH (21:00)
[2017-02-24] MEDS: TIMOPTIC 0.5% OPH SOLUTION BOTH EYES SCH (21:00)
[2017-02-24] MEDS: MELATONIN PO SCH (21:00)
[2017-02-25] MEDS: LOVENOX SUBQ SCH (05:49)
[2017-02-25] MEDS: SYNTHROID PO SCH (06:05)
[2017-02-25 06:55] LABS: AGAP 12; ALBUMIN 2.3 g/dL (3.5-5.0); ALKALINE PHOSPHATASE 114 U/L (32-104); BUN 16 mg/dL (8-22); CALCIUM 8.5 mg/dL (8.8-10.2); CHLORIDE 99 mmol/L (98-107); COSMO 269; GOT 28 U/L (10-30); GPT 10 U/L (10-36); SODIUM 134 mmol/L (136-145); TCO2 23 mmol/L (25-35); TOTAL BILIRUBIN 0.72 mg/dL (0.20-1.00); TOTAL PROTEIN 4.6 g/dL (6.3-8.3)
[2017-02-25 07:34] LABS: BASO% 0.7 % (0.0-0.8); EOS# 0.41 X1000 (0.0-0.7); EOS% 3.9 % (0.0-10.0); HEMATOCRIT 24.4 % (37.0-47.0); HEMOGLOBIN 7.9 g/dL (12.0-16.0); LYMPH% 12.5 % (20.5-51.1); MANUAL DIFF NEEDED? YES; MCH 30.4 PG (27-31); MCHC 32.4 g/dL (33-37); MCV 93.8 FL (81-99); MONO% 11.5 % (1.7-9.3); NEUT% 71.4 % (42.2-75.2); PLT 457 X1000 (130-400)
[2017-02-25 08:55] LABS: EOS 3 % (1-10); LYMPHS 4 % (21-51); MONO 5 % (1-9)
[2017-02-25] MEDS: MAG-OX PO SCH ×3 (09:10→20:15)
[2017-02-25] MEDS: FERROUS SULFATE PO SCH (09:10)
[2017-02-25] MEDS: COZAAR PO SCH ×2 (09:10→09:25)
[2017-02-25] MEDS: LOPRESSOR PO SCH ×2 (09:10→09:26)
[2017-02-25] MEDS: APRESOLINE PO SCH ×3 (09:10→18:23)
[2017-02-25] MEDS: 1/2 NS 1,000 ML IV SCH ×3 (09:11→18:30)
[2017-02-25] MEDS: POTASSIUM CHLORIDE 20 MEQ/SWI 20 MEQ/100 ML IVPB IV SCH ×2 (09:28→11:47)
--- NOTE | 2017-02-25 09:53 | EEG REPORT ---
DATE: 02/19/2017 REFERRING PHYSICIAN: Dr. Alessia Lawrence. EEG #: [id number]. BUTCHER ASSISTANT: Sae Gray. BACKGROUND INFORMATION/TECHNIQUE: A digitally recorded EEG is obtained with 1 additional channel for EKG. HISTORY OF PRESENT ILLNESS: This is an 87-year-old female who is status post hip surgery with altered mental status. An EEG is ordered to detect evidence of possible seizures. MEDICATIONS: Notable for p.r.n. Haldol, Seroquel, ceftriaxone. EEG FINDINGS: A posterior dominant alpha rhythm is notably absent. The background consists primarily of theta slowing with some admixed delta. There are admixed faster frequencies. Reactivity is good. Spontaneous variability is good. No epileptiform discharges and no seizures are noted. No focal slowing is noted. Hyperventilation was not performed. Photic stimulation did not alter the background. There are brief periods of drowsiness but n2 sleep is not achieved. The EKG demonstrates occasional irregularity in the R to R interval. IMPRESSION AND CLINICAL CORRELATION: This is an abnormal routine EEG due: 1. Mild generalized background slowing, suggestive of a mild nonspecific encephalopathy. Generalized slowing is a nonspecific finding that can be seen in processes that diffusely affect the cerebrum including toxic, metabolic and pharmacologic causes, amongst other etiologies. 2. Rare irregularity of the R to R interval on the EKG lead. No epileptiform discharges and no seizures are seen on the current study. This does not rule out an underlying seizure disorder. Clinical correlation is advised. cc: Alessia Lawrence MD [facility]
--- NOTE | 2017-02-25 10:32 | PROGRESS NOTE ---
DATE: 02/25/2017 SUBJECTIVE: This patient looks stable. No big changes compared with yesterday. She is still confused. She is not eating solids and she is drinking fluids on and off. Apparently she did not sleep during the night. OBJECTIVE: Vital Signs: Temperature 98.1 degrees, pulse 88, respiratory rate 18, blood pressure 146/64, oxygen saturation 98 on room air. HEENT: Head normocephalic. No trauma. Pupils equal, round, and reactive to light and accommodation. Neck: Supple. No jugular venous distention. No masses. Central trachea. Chest: Clear to auscultation. No wheezing. No rales. Abdomen: Soft, nontender, nondistended. No hepatosplenomegaly. Extremity: The right hip is covered with clean dressing and she has some diffuse ecchymosis around it. Neurological Examination: The patient is alert. She is hard of hearing. She is following commands on and off. She talks on and off as well and she did not sleep yesterday night. LABORATORY: WBC 10.4, hemoglobin 10.9, hematocrit 24.4, platelets 457,000. Sodium 134, potassium 3, chloride 99, bicarbonate 23. BUN 16, creatinine 0.4. Calcium 8.5, albumin 2.3. ASSESSMENT AND PLAN: 1. Right intertrochanteric hip fracture, status post right trochanteric femoral nail that was done on 02/08/2017. Continue physical therapy. 2. Leukocytosis, resolved. 3. Normocytic anemia. The hemoglobin dropped from 9.4 to 7.9. I will ask occult blood in the stool to rule out any gastrointestinal bleed. 4. Acute kidney injury, resolved. 5. Hypertension, stable. 6. Hypothyroidism. Continue with home medication. 7. Hyperlipidemia. Continue with home medication. 8. Deep vein thrombosis. Prophylaxis with Lovenox. 9. Altered mental status. Probably this will be her baseline. Probably she has a minimal baseline dementia at home that now is more evident after surgery. Neurology Department is following this patient. We will continue following their recommendations. NUTRITIONAL STATUS: This patient is tolerating diet, some bites and drinks, but it has been on and off. The plan is to probably place a PEG tube on this patient. Gastroenterology Department is following her. The family will meet today to decide if this patient will have a PEG tube or not. cc: Rafael Palmer MD
[2017-02-25] MEDS: TYLENOL PR PRN (11:46)
[2017-02-25] MEDS ORDERED: ULTRAM PO PRN (14:29)
--- NOTE | 2017-02-25 14:59 | PROGRESS NOTE ---
DATE: 02/25/2017 SUBJECTIVE: There has not been much change today. The current daughter at bedside says that she fluctuates, some days are better than others. Today is not a good day and she has been moaning. This daughter also says that she has noticed some very subtle changes in the patient's memory over the last number of months but nothing major. OBJECTIVE: Vital signs: Reviewed in the chart. Neurologic: This is an elderly frail- appearing female supine in bed, at times moaning. She knows that she is in [place], [place], but does not know this is a hospital. She does not initially answer further orientation questions, but later on, calls her daughter by name and is at times verbalizing appropriately and at other times inappropriately to the topic. She does regard. She followed a couple of simple commands, not consistently. She is moving her extremities equally. DIAGNOSTICS: White count 10, hemoglobin 7.9, hematocrit 24, platelets 457,000. Sodium 134, BUN 16, creatinine 0.4, alkaline phosphatase 114. AST, ALT and bilirubin within normal limits. EEG was personally reviewed. It shows mild generalized nonspecific background slowing and some irregularity to the RR interval on the EKG lead which is rare. ASSESSMENT AND PLAN: This is an 87-year-old female with prolonged encephalopathy following surgical intervention for a right hip fracture. I believe the patient does have a baseline mild cognitive impairment syndrome that has not been easily recognized by all family , and again, this would predispose her to more protracted encephalopathy with toxic or metabolic disturbances. An EEG showed only mild diffuse slowing, but no evidence of increased seizure propensity. I would continue to limit any unnecessary medications. Continue with orienting behaviors during the day and at night. As this has been ongoing now, you might consider brain MRI for further evaluation if she can tolerate this, though I do not see any focality to her exam. No other new suggestions today. cc: Alessia Lawrence MD MTDD
[2017-02-25] MEDS: ROCEPHIN 1 GM/NS 1 GM/50 ML IVPB IV SCH (18:24)
[2017-02-25] MEDS: MYCOSTATIN POWDER TOP SCH (18:30)
[2017-02-25] MEDS: NS IV SCH (18:57)
[2017-02-25] MEDS: FOLIC ACID IV SCH (18:57)
--- NOTE | 2017-02-25 19:08 | PROGRESS NOTE ---
DATE: 02/25/2017 SUBJECTIVE: Patient is confused. I have spoken with her . They have discussed as a family about PEG tube placement and have decided to proceed. Patient is not eating much. was only able to get her to eat a couple bites of lunch. OBJECTIVE: Vital Signs: Temperature 97.8 degrees, pulse 97, respirations 18, blood pressure 96/53. ASSESSMENT AND PLAN: 1. Confusion. 2. Right hip fracture, status post nailing on 02/08/2017. 3. Poor nutritional status. She is only eating bites of food and sips of liquids. There has been long discussion with the family about PEG tube placement. The family has decided to proceed. This will be scheduled with Dr. Rosa Mclean, on Saturday. I have discussed the procedure with the and he wishes to proceed. Further plans will be made per Dr. Mclean when she returns. I have discussed this case with Dr. Padilla. Dictated by SEBASTIÁN Quiroz for Law Padilla MD cc: SEBASTIÁN Tavares MD [facility]
[2017-02-25 20:06] VITALS: BP 109/71
[2017-02-25] MEDS: MELATONIN PO SCH (20:15)
[2017-02-25] MEDS: TIMOPTIC 0.5% OPH SOLUTION BOTH EYES SCH (20:15)
[2017-02-25] MEDS: SEROQUEL PO SCH (20:15)
[2017-02-25] MEDS: THIAMINE 100 MG in NS 50 ML IV SCH (20:30)
[2017-02-25 22:07] LABS: ALLEN TEST YES; BE -6.2 mmoll (-3.0-3.0); BLOOD TYPE ARTERIAL; DRAW SITE R RADIAL; O2(CT) 8.9 mL/dL (15.0-23.0); PCO2(98.6) 32 mmHg (35-45); PO2(98.6) 64 mmHg (60-100); SAMPLE BLOOD; SAO2 98.1 % (95.0-100.0); THB 6.6 g/dL (11.5-17.4); pH(98.6) 7.37 (7.35-7.45)
[2017-02-25 22:09] LABS: MODALITY CANNULA
--- NOTE | 2017-02-25 22:19 | Diag Imaging Result Doc PS360 ---
EXAM: CHEST-PORTABLE HISTORY: Dyspnea TECHNIQUE: Portable AP COMPARISON: 02/20/2017 FINDINGS: There is a small left-sided pleural effusion. The heart is borderline mildly prominent. The vessels are not distended. There is atelectasis or an infiltrate left base. The overall appearance is similar to that of the prior exam. There is a calcified granuloma in the upper left lung and there calcified hilar lymph nodes. IMPRESSION: Stable chest. Electronically signed by Tano Jonas 02/25/2017 10:17 PM
[2017-02-25] MEDS ORDERED: EPINEPHRINE SYRINGE IV ONE (22:30)
--- NOTE | 2017-02-25 23:16 | PROVIDER DOCUMENTATION ---
HPI-Cardiopulmonary Arrest - General Chief Complaint: Hip Injury Stated Complaint: hip pain fall Time Seen by Provider: 02/08/17 02:25 Allergies/Adverse Reactions: Allergies Allergy/AdvReac Type Severity Reaction Status Date / Time Latex, Natural Rubber Allergy ITCHING Verified 02/08/17 18:27 morphine Allergy HIVES Verified 02/08/17 18:27 sertraline HCl * Allergy Unknown Verified 02/08/17 02:29 [From Zoloft] Home Medications: Home Medication List Medication Instructions Recorded Confirmed Last Taken Type Fenofibrate Nanocrystallized 145 mg PO DAILY 11/29/14 02/08/17 02/07/17 07:00 History [Tricor] Levothyroxine [Synthroid] 0.025 mg PO DAILY 11/29/14 02/21/17 02/07/17 07:00 History Mirtazapine [Remeron] 15 mg PO DAILY 11/29/14 02/08/17 02/07/17 22:00 History Nebivolol [Bystolic] 5 mg PO DAILY 11/29/14 02/08/17 02/07/17 07:00 History Olmesartan Medoxomil [Benicar] 20 mg PO DAILY 11/29/14 02/08/17 02/07/17 07:00 History Pregabalin [Lyrica] 75 mg PO DAILY 11/29/14 02/08/17 02/07/17 07:00 History Timolol [Betimol] 1 drop BOTH EYES QHS 11/29/14 02/08/17 02/07/17 20:00 History Tizanidine HCl [Zanaflex] 4 mg PO DAILY 11/29/14 02/08/17 02/07/17 20:00 History Tramadol HCl/Acetaminophen 100 mg PO DAILY 11/29/14 02/08/17 02/07/17 22:00 History [Ultracet Tablet] Zolpidem [Ambien] 10 mg PO QHS 11/29/14 02/08/17 02/07/17 22:00 History - History of Present Illness-C/P Arrest Initial Comments: Called Code Blue in room 470. Initial rhythm asystole. Reason for Code Blue?: full arrest Witnessed arrest?: Yes Noted by:: nurse Bystander CPR?: Yes CPR initiated before doctor arrival?: Yes Down-time before ACLS?: see above (2 or 3 min at least) Initial Findings: asystole Treatment initiated prior to doctor arrival?: Initiated oxygen, Initiated intubated, Initiated IV fluids Similar Symptoms Previously?: No Recently seen or treated by another doctor?: No - Pronouncement CPR discontinued. Patient pronounced at: 22:57 Family notified?: Yes Private provider notified?: Yes home notified?: Yes Organ donor status discussed?: Yes Review of Systems - Adult - REVIEW OF SYSTEMS - ADULT ROS:: unobtainable per condition Constitutional: reports: no symptoms reported Past History - Adult - PAST MEDICAL HISTORY-ADULT Review of Records: reports: Nursing Assessment Review Major Childhood Illnesses: reports: denies history Cardiovascular: reports: HTN Respiratory: reports: denies history Gastrointestinal: reports: denies history Obstetrical/Gynecological: reports: denies history Genitourinary: reports: denies history Musculoskeletal: reports: denies history Neurological: reports: denies history Endocrine/Immune: reports: denies history Other Conditions: reports: denies history - PRIOR SURGERIES/PROCEDURES Surgical/Procedure History: reports: hysterectomy, other (cataract removal) - PRIOR HOSPITALIZATIONS Prior Hospitalizations: reports: for other non-related - IMMUNIZATION STATUS Childhood Immunizations: See Nurse Assessment Flu Vaccine: See Nurse Assessment - FAMILY HISTORY Family History: reviewed, not pertinent Physical Exam-General - PHYSICAL EXAM-ADULT Initial Vital Signs Reviewed: Yes - CONSTITUTIONAL General Appearance: severe distress - EYES Eyes: other (fixed and dilated) - RESPIRATORY Respiratory: other (intubated) - CARDIOVASCULAR Cardiovascular: other (no heart sounds) - SKIN Integumentary: pallor Progress - PLAN OF CARE/RESULTS Progress/Plan/Lab Results: Orders Category Date Time Status Admit [facility] Routine AdmDCTranf 02/08/17 06:12 Ordered Activity - Up with Assistance ORDERED Care 02/08/17 06:12 Completed Apply Mechanical Device [QM] ORDERED Care 02/08/17 06:12 Active Ko Cath Insertion ORDERED Care 02/08/17 02:36 Completed Intake and Output-Strict ORDERED Care 02/08/17 06:12 Active Nursing- MD Consult Request ROUTINE Care 02/08/17 06:12 Completed Vital Signs Order Q 4-HR ASSESS Care 02/08/17 06:12 Active Physician/Provider Consults Routine Cons 02/08/17 06:12 Ordered NPO Diet 02/08/17 05:12 Completed XRAY PELVIS W/HIP 2-3VW RT [RAD] Stat Exams 02/08/17 02:26 Completed BASIC METABOLIC PANEL [CHEM] Routine Lab 02/08/17 12:30 Completed BASIC METABOLIC PANEL [CHEM] Routine Lab 02/09/17 04:49 Completed CBC WITH DIFF [HEME] Routine Lab 02/09/17 04:49 Completed PROTIME WITH INR [COAG] Stat Lab 02/08/17 02:22 Completed TROPONIN T Stat Lab 02/08/17 02:22 Completed TSH Stat Lab 02/08/17 02:22 Completed 0.9% Sodium Chloride Inj [Ns] 1,000 ml Med 02/08/17 06:12 Discontinued IV 100 mls/hr Acetaminophen [Tylenol] Med 02/08/17 06:12 Discontinued 650 mg PO Q6H PRN PRN Hydromorphone [Dilaudid] Med 02/08/17 02:34 Discontinued 0.5 mg IV NOW ONE Hydromorphone [Dilaudid] Med 02/08/17 06:12 Discontinued 0.5 mg IV Q4H PRN PRN Nebivolol [Bystolic] Med 02/08/17 09:00 Discontinued 5 mg PO DAILY Olmesartan [Benicar] Med 02/08/17 09:00 Discontinued 20 mg PO DAILY Ondansetron [Zofran] Med 02/08/17 02:36 Discontinued 4 mg IV NOW ONE Ondansetron [Zofran] Med 02/08/17 06:12 Discontinued 4 mg IV Q4H PRN PRN Oxycodone I.r. [Oxy Ir] Med 02/08/17 06:12 Discontinued 5 mg PO Q4H PRN PRN Polyethylene Glycol 3350 [Miralax] Med 02/08/17 09:00 Discontinued 17 gm PO BID Pregabalin [Lyrica] Med 02/08/17 09:00 Discontinued 75 mg PO DAILY Sennosides/Docusate Sodium [Pericolace] Med 02/08/17 09:00 Discontinued 2 each PO DAILY Timolol 0.5% Oph Solution [Timoptic 0.5% Oph Solution] Med 02/08/17 21:00 Active 0 ml BOTH EYES QHS Transfer/Admit Order [TRANSFER] Routine Transfer 07/14/17 05:11 Completed Result Diagrams: 02/25/17 06:00 02/25/17 06:00 Procedures - INTUBATION Time of Intubation: 22:35 Airway Evaluation: Copious Secretions Mallampati Class: 1 Intubation Method: orotracheal Equipment: ETT Tube Size (cm): 7.5 Pretreated with 100% Oxygen?: Yes Breath Sounds after Intubation: equal ETT Primary Tube Confirmation: Capnometry CO2 Change, Direct Visualization, Chest Rise and Fall Intubation Complications: no complications Departure - Departure Date of Disposition Decision: 02/25/17 Time of Disposition Decision: 22:57 DIAGNOSIS: Fracture, intertrochanteric, right femur Qualifiers: Encounter type: initial encounter Fracture type: closed Fracture alignment: nondisplaced Qualified Code(s): S72.144A - Nondisplaced intertrochanteric fracture of right femur, initial encounter for closed fracture Disposition: 20 Certified Medical Emergency: Emergent Condition: - Critical Care Note This patient required my direct & personal management of CC.: Yes Total Time (mins): 30 Critical Care Statement: This patient required my direct personal management to treat or rule out processes, the absence of which, could potentiallly result in sudden, clinically significant life or limb threatening deterioration.
[2017-02-26] MEDS: APRESOLINE PO SCH (01:56)
[2017-02-26] MEDS: COZAAR PO SCH (01:57)
[2017-02-26] MEDS: LOPRESSOR PO SCH (01:58)
--- NOTE | 2017-02-26 08:59 | PROGRESS NOTE ---
DATE: 02/26/2017 SUBJECTIVE: Ms. Hoang is a frail, elderly, 87-year-old, female, who was initially admitted on 02/08/2017 for a right hip fracture. She did undergo a right trochanteric femoral nailing on 02/08/2017. Since then, she has been here quite some time. The patient has had some nutritional problems as well. Nurse and family stated that she had been having issues with not wanting to eat, and was currently still inpatient for further evaluation of this. At approximately 2130 on 02/25/2017, Manisha, the patient's nurse, did call me and stated that she was concerned about the patient. She reported that she had audible rattling lung sounds noted, and she reported that her color was not what it had previously been. I did go down to the patient's room to assess her. Upon examination, walking in the room, the patient did have audible rattling sounds noted. She does have a sitter, who sat in the room with her, and stated that initially when she arrived around 8:00, that she was not breathing this way. Her vital signs during this time were temperature 98.4 degrees, heart rate 106, respirations 16 , blood pressure was 109/71, oxygen saturation was 98% on room air, though given the patient's breathing, we did go ahead and place her on some nasal cannula oxygen. Lung sounds did sound wet in bilateral full lungs [place]. We also ordered a stat chest x-ray, stat arterial blood gases, as well as CBC, CMP, magnesium, and type and screen. I did note that the patient's hemoglobin and hematocrit have been trending down over the past few days. Dr. Winters had noted this as well and had ordered a Hemoccult stool, for which the result was positive for later this afternoon. Her arterial blood gases were good, except for that she did have a lactate noted of 5.10. I did add on blood cultures as well as a serum lactate. The patient had also been being treated for pneumonia, and was receiving Rocephin antibiotic. The patient's chest x-ray was compared to one performed previously on 2016. Radiologist reported that it was a stable chest. There was still a small left-sided pleural effusion noted, as well as the heart is borderline mildly prominent, though the vessels are not distended. There is atelectasis or an infiltrate in the left base. The overall appearance was noted to be similar to that of the prior exam. We were awaiting laboratory results to come back. The patient was having some slight increased work of breathing, though her oxygen saturation and other vital signs were remaining stable at this time. At approximately 2246 on 02/25/2017, staff on the fourth floor did note that the patient's sitter called out and said they needed to come and check the patient right away. Manisha , the patient's nurse, did go into the room and found the patient unresponsive with no pulse. A code blue was called. Initial rhythm upon evaluation was asystole. CPR was started. ACLS protocol was initiated. During this time patient was given epinephrine, intubation was performed by Dr. Gutierres. The patent remained asystole throughout the code and did not have spontaneous return of circulation. Also during CPR the patient did have a large bloody bowel movement as well as did have copious amount bloody emesis noted. At 2300, Dr. Gutierres, the ER physician , did decide to end resuscitation measures. He called the time of at 2300 on 2016. We suspect that the cause of is cardiopulmonary arrest secondary to a gastrointestinal bleed. We did notify the patient's family, who did come to the hospital. I did speak with them and explained events prior to and during the patient's code blue. They did state verbal understanding, and had no further questions. TIME SPENT: Critical care time of this patient was 1.5 hours (that would be 90 minutes). Dictated by SEBASTIÁN Terrazas for Marina Lyon MD Above events and plan concurred by me. cc: Marina Lyon MD [facility]
[2017-02-27] MEDS ORDERED: MEFOXIN 1 GM/NS 1 GM/50 ML IVPB IV ONE (08:00)
--- NOTE | 2017-02-27 10:03 | DISCHARGE SUMMARY ---
ADMISSION DATE: 02/08/2017 DISCHARGE DATE: 02/25/2017 PERTINENT PROCEDURES: 1. Right trochanteric femoral nailing performed by Dr. Aldair Cueva. 2. Head CT showed stable chronic changes, but no evidence of acute intracranial pathology. 3. Modified barium swallow showed anterior cervical spine osteophytes with some eccentric compression upon the cervical esophagus, most prominent at C6-7, some tertiary contractions of the thoracic esophagus. 4. EEG showing mild generalized background slowing, suggestive of mild nonspecific encephalopathy. CONSULTATIONS: 1. Dr. Aldair Cueva with Orthopedics. 2. Dr. Charles Reinoso with Nephrology. 3. Dr. Alessia Lawrence with Neurology. 4. Dr. Padilla with Gastroenterology. DISCHARGE DIAGNOSES: 1. Right intertrochanteric hip fracture, status post right femoral nailing. The patient on 02/25/2017 at 2257. 2. Leukocytosis, resolved. 3. Normocytic anemia. The patient did have a drop in her hemoglobin and hematocrit from 9.4 to 7.9. They did obtain occult stools to rule out gastrointestinal bleeding. Looking back at the results, they were positive as of yesterday. 4. Acute kidney injury, resolved. 5. Hypertension, stable. 6. Hypothyroidism. 7. Hyperlipidemia. 8. Deep venous thrombosis prophylaxis with Lovenox. 9. Altered mental sinus. 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 She was followed by Neurology. 10. Poor nutritional status, followed by Gastroenterology. The patient was only eating bites of food and sips of liquid. They had long discussions with the family about percutaneous endoscopic gastrostomy tube placement. They did decide to proceed with the percutaneous endoscopic gastrostomy tube placement that was scheduled to Dr. Mclean. However, again, the patient did on 02/25/2017 at 2257. HOSPITAL COURSE: Briefly, Ms. Hoang is an 87-year-old female with past medical history of hypertension, hyperlipidemia, and hypothyroidism, who fell in her kitchen. She said she felt a little dizzy prior to falling, but no complaints of chest pain or any cardiorespiratory complaints. There was no loss of consciousness. She did not hit her head. X- ray confirmed a right intertrochanteric fracture. She was admitted with an Orthopedic consult with pain management. She remained n.p.o. to have surgery that day with Dr. Cueva. She had a right trochanteric femoral nailing. After surgery, she did have an acute kidney injury with decreased urine output. Nephrology was consulted. She was placed on IV fluids. Her Benicar was held. She did have acute tubular necrosis. Her acute kidney injury resolved. She was fluid resuscitated appropriately. Nephrology signed off. After surgery, the patient began having some delirium and encephalopathy with some underlying dementia. Dr. Arevalo did some medication adjustments. The patient still remained confused. Dr. Arevalo made more medications, switched her to Seroquel, which seen to be effective. She seemed to be doing worse at night. They did do a head CT that did not show anything acute. Dr. Arevalo had several long conversations with the family. Neurology was consulted. She did undergo an EEG that showed mild generalized background slowing suggestive of mild nonspecific encephalopathy. Generalized slowing is a nonspecific finding that can be seen in processes that diffusely affect the cerebrum, including toxic, metabolic, and pharmacologic causes, amongst other etiologies. There were no epileptiform discharges, no seizures that were seen on the current study. 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 The patient also was having a poor appetite. Gastroenterology was involved. They did discuss PEG tube placement, but the was reluctant. They did do a swallow study. The patient continued to only tolerate a little bit of fluids and only bites of food. On Saturday, the family decided to proceed with a PEG tube placement with Dr. Mclean later in the week. However, Dr. Winters noted on the morning on that the patient had a drop in her hemoglobin and hematocrit. Her vital signs at that time were stable. He did order a Hemoccult stool that was completed at 1636, that was collected at 1620, and came back with a positive result. However, the night shift supervisor team got a call to come and assess the patient, saying that she had some rattled breathing. They did get a chest x- ray. It read stable. They did an ABG that was essentially normal, except for a lactate of 5.10. Vital signs were essentially stable. At 2246, the patient was found unresponsive with no pulse. A cold blue was called. CPR was initiated, along with ACLS. Dr. Gutierres from the ED came up and intubated the patient, took over the code, and the patient was pronounced at 2257. Dictated by SEBASTIÁN Barnett for Rafael Palmer MD cc: Rafael Palmer MD MTDD
== END 2017-02-25 23:00 | disposition expired ==
LOC: SUPCPDRO → ED 02:15 → 4N 05:44 → SUATTDRO 05:44
PROVIDERS: ATTEND Internal Medicine